=== PATIENT | male | born 1950 | race Caucasian/White ===

== ENCOUNTER 2021-08-23 11:22 | Emergency (ER) | payer OTHER, SELFPAY ==
[2021-08-23 12:03] VITALS: BP 141/57; PULSE 73; RESP 18; TEMP 36.7; O2SAT 98; BMI 25.6
--- NOTE | 2021-08-23 12:28 | W.ED.EYEPROB ---
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 It has not improved since last night. He says when he looks at a box of cereal this morning he can see the outline in the cereal box but he cannot see the center of it. Denies any pain headache has had some eye drainage that left eye over the last few weeks, denies any blood pressure problems or history of migraines. chief complaint: vision change Onset (ago): hour(s) (Started yesterday evening while about 130 miles from home) Onset description: sudden Duration: constant Location: left eye Eye Symptoms: decreased vision Place: work Mechanism: none Severity: moderate Context: other (Did have new glass scription 1 month ago) Associated symptoms: Reports other (Clear drainage from left eye); Denies fever(s), headache(s), nausea or vomiting Review of Systems Const: Denies: fever(s), chills or body aches Eyes: Reports: change in vision and eye discharge (Clear); Denies: blurry vision ENMT: Denies: throat pain or nasal congestion Card: Denies: chest pain or dyspnea on exertion Resp: Denies: dyspnea, productive cough or non-productive cough GI: Denies: abdominal pain, nausea or vomiting : Denies: difficulty urinating Musc: Denies: extremity pain Skin/Breast: Denies: rash Neuro: Denies: headache(s) Psych: Denies: anxiety or depression Frederic/Lymph: Denies: easy bruising Physical Exam Const: COMMON NORMALS: no acute distress GENERAL APPEARANCE: cooperative HENMT: COMMON NORMALS: normocephalic and Normal external nose present HEAD & SCALP: normocephalic FACE & SINUS: normal facial exam NOSE: Normal external nose present Eye: COMMON NORMALS: EOMs intact bilaterally and conjunctivae normal ALIGNMENT: Yes alignment normal EYELID: eyelid abnormality left lower eyelid (Mild redness) CONJUNCTIVA: Yes conjunctivae normal PUPIL: Yes Pupil accommodation reflex normal DIRECT OPHTHALMOSCOPY: No photophobia and Yes other (Increased redness left eye, cannot ascertain a retinal detachment) Course Vital Signs: Vital signs: Vital Signs Temperature 98.1 F 08/23/21 12:03 Pulse Rate 73 08/23/21 12:03 Respiratory Rate 18 08/23/21 12:03 Blood Pressure 141/57 08/23/21 12:03 Pulse Oximetry 98 08/23/21 12:03 MDM - Eye Problem MDM Narrative: Medical decision making narrative: I spoke with Dr. Sosa at [facility] and he said going to send the patient over right now for evaluation and further care. I have concern for possible retinal detachment Discharge Plan Discharge Patient Disposition: Home Clinical Impression: Retina disorder, left Condition: Stable Discharge Orders: Discharge ED (Routine); Ordered 08/23/21 Ordered By: Peter Rosario Referrals: Rafiq Petit [Primary Care Provider] - Discharge Diet: Usual diet Activity Restrictions/Additional Instructions: You are being discharged from ER to [facility] and going to see Dr. Sosa and they said they will work you and evaluate your visual disturbance in the left eye. Please go directly to [facility] office. Coding Level of Care Code ED Production Welder for Cher Epstein
== END 2021-08-23 12:30 | disposition home or self-care (01) ==
PROVIDERS: Emergency Provider Nurse Practitioner Family; PCP Family Medicine
DX: H35.9 Unspecified retinal disorder (principal)
CPT/HCPCS: 99282

== ENCOUNTER 2023-07-09 08:02 | Outpatient (CLI) | payer OTHER, SELFPAY ==
--- NOTE | 2023-07-09 | USCV_ITS ---
Edmund Jessica Age: 72 Gender: M : 1950 Exam Date: 07/09/2023 08:39 Ordering Phys: Rosalina Ann MD Technologist: Juanis Wick Exam Location: [facility] [place] Indication: PT STATES HAD STENT IN 2000. DOT NOW REQUIRES ECHO FOR EXAM BP: 130 / 70 HR: 58 Rhythm: Sinus Technical Quality: Adequate MEASUREMENTS (Male / Female) Normal Values 2D ECHO LV Diastolic Diameter PLAX 4.4 cm 4.2 - 5.9 / 3.9 - 5.3 cm LV Systolic Diameter PLAX 3.5 cm LV Chamber Size 2.8 cm IVS Diastolic Thickness 1.2 cm 0.6 - 1.0 / 0.6 - 0.9 cm IVS Systolic Thickness 1.6 cm LVPW Diastolic Thickness 1.4 cm 0.6 - 1.0 / 0.6 - 0.9 cm LVPW Systolic Thickness 1.8 cm RV Chamber Size 2.5 cm LVOT Diameter 2.0 cm LV Ejection Fraction 2D Teich 21.3 % LV Ejection Fraction MOD 2C 47.3 % LV Ejection Fraction 2C AL 45.6 % LA Diameter 3.6 cm LA Width 3.0 cm LA Height 2.7 cm RA Width 3.0 cm RA Height 3.7 cm Aorta at Sinotubular Diameter 3.7 cm IVC Diameter 1.8 cm M-MODE Aortic Annulus Diameter 3.4 cm LA Ao Ratio MM 1.1 MV E Point Septal Separation 0.2 cm DOPPLER AV Peak Velocity 114.0 cm/s LVOT Peak Velocity 101.0 cm/s AV Area Cont Eq vti 2.8 cm squared AV Area Cont Eq pk 2.8 cm squared MV Area PHT 1.5 cm squared Mitral E to A Ratio 0.7 MV E' Velocity 33.5 cm/s Mitral E to MV E' Ratio 7.3 Mitral E to LV E' Lateral Ratio 6.4 Mitral E to LV E' Septal Ratio 8.5 TR Peak Velocity 227.2 cm/s TR Peak Gradient 20.6 mmHg TR Mean Velocity 119.8 cm/s TR Mean Gradient 7.4 mmHg TR Velocity Time Integral 41.4 cm TV Peak E Velocity 45.0 cm/s Right Atrial Pressure 3.0 mmHg Pulmonary Artery Systolic Pressu 23.6 mmHg RV Acceleration Time 0.1 s RV Ejection Time 0.4 s RV AcT/ET 0.3 FINDINGS Left Ventricle Normal left ventricular size, systolic function and wall thickness, with no regional wall motion abnormalities. Left ventricular ejection fraction is estimated at 65 %. Grade 1 diastolic dysfunction. Right Ventricle Normal right ventricular size and systolic function. Right Atrium Normal right atrial size. Left Atrium Normal left atrial size. Mitral Valve Structurally normal mitral valve. No mitral valve stenosis. Trace mitral valve regurgitation. Aortic Valve Thickened aortic valve. No aortic valve stenosis. No aortic valve regurgitation. Tricuspid Valve Structurally normal tricuspid valve. Trace tricuspid valve regurgitation. Pulmonic Valve Structurally normal pulmonic valve. Trace pulmonary valve regurgitation. Pericardium No pericardial effusion. Aorta Normal size aortic root and proximal ascending aorta. IVC Normal IVC dimension with >50% respiratory change of the inferior vena cava. CONCLUSIONS Normal left ventricle functions. No LVH. Estimated LVEF normal 65%. Normal chamber sizes. No significant valvular abnormality noted. Normal right heart and pulmonary pressure. David Jones MD (Electronically Signed) Final Date: 09 July 2023 14:07 S
--- NOTE | 2023-07-09 | US_ITS ---
WS: [id number] RIGHT UPPER QUADRANT ULTRASOUND HISTORY: ELEVATED ALT'S COMPARISON: None available. Liver: 17.0 cm in length. Mildly enlarged coarse liver. The entire liver is not well seen due to atte nuation from hepatic steatosis. No mass seen. No bile duct dilatation. Portal Vein: Normal hepatopetal flow with monophasic waveform. Gallbladder: Normally distended gallbladder with no stones or wall thickening. CBD: 0.5 cm Pancreas: Portions of the head and tail are obscured. The body is negative. Right kidney: 12.1 cm in length. Normal size kidney. No solid mass or hydronephrosis. Simple cyst sup erior pole measures 3.0 x 1.8 x 2.0 cm. Aorta and IVC: Unremarkable abdominal aorta and IVC. No ascites. IMPRESSION: 1. Normal gallbladder. 2. Mild hepatomegaly with hepatic steatosis. The entire liver is not well visualized. 3. Simple cyst superior pole RIGHT kidney.
== END 2023-07-09 08:03 | disposition home or self-care (01) ==
LOC: RAD 08:02
PROVIDERS: PCP Family Medicine; Visit Provider Family Medicine
DX: R07.9 Chest pain, unspecified (principal); R74.01 Elevation of levels of liver transaminase levels; K76.0 Fatty (change of) liver, not elsewhere classified; R16.0 Hepatomegaly, not elsewhere classified; N28.1 Cyst of kidney, acquired; Z95.5 Presence of coronary angioplasty implant and graft
CPT/HCPCS: 76705; 93306

== ENCOUNTER 2024-01-15 13:23 | Inpatient (IN) | payer OTHER, SELFPAY ==
[2024-01-15] VITALS (11 sets, daily range): BP systolic 151–216; BP diastolic 64–86; PULSE 53–75; RESP 13–20; TEMP 36.3; O2SAT 91–95; BMI 27.2; BMI 27.5
--- NOTE | 2024-01-15 13:27 | ECG_ITS ---
[facility] Test Date: 2024-01-15 Pat Name: Edmund Jessica Department: Room: Gender: Male Consumer Insights Specialist: : 1950 Requested By: Lori Torres Order Number: [id number] Orville MD: Sukhi Horton M.D. Measurements Intervals [place] Rate: 63 P: 59 ME: 166 QRS: 50 QRSD: 119 T: 27 QT: 343 QTc: 353 Interpretive Statements SINUS RHYTHM POSSIBLE LEFT ATRIAL ENLARGEMENT [-0.1mV P-WAVE IN V1/V2] MODERATE INTRAVENTRICULAR CONDUCTION DELAY [110+ ms QRS DURATION] NONSPECIFIC T-WAVE ABNORMALITY No previous ECG available for comparison Electronically Signed On 01-15-2024 18:14:18 CDT by Sukhi Horton M.D. [id number] f
--- NOTE | 2024-01-15 14:08 | XR_ITS ---
WS: [id number] XR chest 1V portable [id number] REASON FOR EXAM: cp FINDINGS: Mild tortuosity of the thoracic aorta. Heart size at the upper limits of normal. Calcified granulomas disease in both hemithoraces. No acute pulmonary parenchymal or pleural abnormality in the right hemithorax. In the left hemithorax there are reticular interstitial left lower lung opacities and blunting of the left costophrenic angle. The chronicity of these changes are not known since the previous examinatio n was 12/20/2015. The findings were not present at that time. Mild degenerative spondylosis in the mid and lower thoracic spine. XR/XR chest 1V portable [id number] IMPRESSION: Left lung and pleural abnormality of unknown chronicity. This could represent a n acute/subacute pneumonitis and left pleural effusion.
--- NOTE | 2024-01-15 14:20 | ED_ITS ---
HPI - SOB/Dyspnea 2 General: Chief Complaint: Shortness of Breath/Dyspnea Stated Complaint: Shortness of breath Time Seen by Provider: 01/15/24 14:07 Source: patient Mode of arrival: ambulatory Limitations: no limitations History of Present Illness: HPI Narrative: 73-year-old male states he has been havi ng shortness of breath of the last 2 to 3 days. He states its much worse with exertion patient here is requiring 2 L of oxygen at this time. He states he had some bandlike pressure around his chest denies any pain currently denies cough denies fever no history of COPD or CHF Associated symptoms: Deny abdominal pain, chest pain, fever(s), nausea or vomiting Review of Systems 2 Const: Denies: fever(s), chills, body aches or change in appetite ENMT: Denies: throat pain or dental pain Card: Denies: chest pain Resp: Reports: dyspnea GI: Denies: abdominal pain, nausea, vomiting or diarrhea Musc: Denies: neck pain or back pain Skin/Breast: Denies: rash Neuro: Denies: headache(s) Physical Exam 2 Const: COMMON NORMALS: patient oriented x3 HENMT: COMMON NORMALS: normocephalic and atraumatic HEAD & SCALP: n ormocephalic and atraumatic Eye: COMMON NORMALS: Equal, round and reactive pupils present and EOMs intact bilaterally PUPIL: Yes Equal, round and reactive pupils present Neck/C-Spine: COMMON NORMALS: full ROM and supple Chest: COMMONS NORMALS: normal inspection of the chest and normal palpation of entire chest wall Resp: COMMON NORMALS: normal respiratory effort, No retractions, No use of accessory muscles and clear to auscultation bilaterally AUSCULTATION: clear to auscultation bilaterally Cardio: COMMON NORMALS: regular rate, regular rhythm and No murmurs present (Cardio) RATE: regular rate RHYTHM: regular rhythm GI: COMMON NORMALS: Normal to inspection, nondistended, normoactive bowel sounds present, Soft to palpation, non-tender and no masses PALPATION: Yes Soft to palpation Extremity: COMMON NORMALS: normal to inspection and full ROM Neuro: COMMON NORMALS: patient oriented x3, moves all extremities and no focal motor deficits Psych: COMMON NORMALS: mental status grossly normal, Normal thought process present and cooperative THOUGHT PROCESS: Normal thought process present Skin: COMMON NORMALS: no rashes or lesions noted and no wounds GENERAL SKIN EXAM: no rashes or lesions noted Course 2 Vital Signs: Vital signs: Vital Signs Temperature 97.4 F L 01/15/24 13:34 Pulse Rate 56 L 01/15/24 17:50 Respiratory Rate 20 H 01/15/24 17:50 Blood Pressure 192/84 01/15/24 17:50 Pulse Oximetry 94 01/15/24 17:50 Oxygen Delivery Me thod Nasal Cannula 01/15/24 17:50 Oxygen Flow Rate 2 01/15/24 15:15 MDM - SOB/Dyspnea Medical Decision Making Patient presents here with dyspnea likely new onset CHF he does have an elevated BNP is CT shows pulmonary edema and cardiomegaly he is requiring oxygen here as well he has no PE no chest pain troponins are normal did give him Lasix here spoke to the hospitalist will admit. Medical Records I reviewed the patient's medical records. Lab Data I reviewed the patient's lab results. 01/15/24 14:15 01/15/24 14:15 Labs/Radiology: Radiology Impressions Chest X-Ray 01/15/24 14:08 IMPRESSION: Left lung and pleural abnormality of unknown chronicity. This could represent an acute/subacute pneumonitis and left pleural effusion. Chest CTA 01/15/24 15:47 IMPRESSION: 1. No pulmonary embolism. 2. Dilated pulmonary artery which can be seen with pulmonary arterial hypertension, measuring 34 millimeters. 3. Diffuse pulmonary edema. 4. Cardiomegaly. 5. There is severe triple-vessel atherosclerotic calcifications of the coronary arteries. 6. Diffuse hepatic steatosis. 7. Partially visualized bilateral moderate hydronephrosis. COMMENTS: Consistent with the [place] [employer]'s Incidental Findings Committee white paper (J Am Jam Radiol 2018): Any incidental renal lesion less than 1 cm or classified as too small to characterize, or any incidental cystic renal lesion characterized as simple-appearing, is likely benign. No follow-up imaging is recommended for these lesions per consensus recommendations based on imaging criteria. Laboratory Results WBC 9.30 10^3/uL (3.29-11.43) 01/15/24 14:15 RBC 4.09 10^6/uL (3.85-5.65) 01/15/24 14:15 Hgb 12.60 g/dL (11.27-16.99) 01/15/24 14:15 Hct 36.7 % (37-53) L 01/15/24 14:15 MCV 89.7 fl (82-101) 01/15/24 14:15 MCH 30.8 pg (27-33) 01/15/24 14:15 MCHC 34.3 g/dL (30-55) 01/15/24 14:15 RDW 12.6 % (12.1-15.1) 01/15/24 14:15 Plt Count 240 10^3/cmm (157-399) 01/15/24 14:15 MPV 11.2 fL (7.4-10.4) H 01/15/24 14:15 Neut % (Auto) 67.6 % 01/15/24 14:15 Lymph % (Auto) 14.9 % 01/15/24 14:15 Mclean % (Auto) 14.6 % 01/15/24 14:15 Eos % (Auto) 2.3 % 01/15/24 14:15 Baso % (Auto) 0.4 % 01/15/24 14:15 Neut # (Auto) 6.28 10^3/uL (1.8-7.7) 01/15/24 14:15 Lymph # (Auto) 1.4 10^3/uL (0.8-4.8) 01/15/24 14:15 Mclean # (Auto) 1.4 10^3/uL (0.2-0.9) H 01/15/24 14:15 Eos # (Auto) 0.2 10^3/uL (0.0-0.8) 01/15/24 14:15 Baso # (Auto) 0.0 10^3/uL (0.0-0.1) 01/15/24 14:15 Nucleated RBC % (auto) 0 % 01/15/24 14:15 Nucleated RBCs # 0.0 /100WBC 01/15/24 14:15 D-Dimer 0.84 ug/mLFEU (0-0.59) H 01/15/24 14:15 Sodium 139 mmol/L (136-145) 01/15/24 14:15 Potassium 3.4 mmol/L (3.5-5.1) L 01/15/24 14:15 Chloride 100 mmol/L (98-107) 01/15/24 14:15 Carbon Dioxide 24 mmol/L (22-29) 01/15/24 14:15 Anion Gap 18.4 (5-19) 01/15/24 14:15 BUN 18 mg/dL (8-23) 01/15/24 14:15 Creatinine 1.2 mg/dL (0.7-1.2) 01/15/24 14:15 GFR Calculation Not Reportable 01/15/24 14:15 Glucose 108 mg/dL (65-115) 01/15/24 14:15 Calculated Osmolality 290 mOsm/kg (285-295) 01/15/24 14:15 Calcium 8.4 mg/dL (8.5-10.5) L 01/15/24 14:15 Total Bilirubin 0.6 mg/dL (0.15-1.2) 01/15/24 14:15 AST 18 U/L (0-40) 01/15/24 14:15 ALT 37 U/L (0-41) 01/15/24 14:15 Alkaline Phosphatase 27 U/L (40-130) L 01/15/24 14:15 Troponin T Baseline 20 ng/L (0-15) H 01/15/24 14:15 Troponin T 120 Minute 19.57 ng/L (0-15) H 01/15/24 16:15 Delta Troponin T -0.43 ABS# (0-10) L 01/15/24 16:15 NT-Pro-B Natriuret Pep 1209 pg/mL (0-450) H 01/15/24 14:15 Total Protein 6.7 g/dL (6.6-8.7) 01/15/24 14:15 Albumin 4.0 g/dL (3.5-5.2) 01/15/24 14:15 Globulin 2.7 g/dL (1.3-4.6) 01/15/24 14:15 All radiology interpretation(s) finalized by discharge EKG Data EKG 1: I personally reviewed and interpreted this EKG as follows: EKG Interpretation Date: 01/15/24 EKG interpretation time: 13:27 Interpretation: nsr hr [address] elevation qrs 119 qtc 351 Discharge Plan Discharge Patient Disposition: Admitted As Inpatient Clinical Impression: Congestive heart failure, Hypoxia Condition: Stable Prescriptions: No Action nitroglycerin 2.5 mg Capsule, Extended Release 5 mg PO BID Rx Instructions: allow nitrate-free interval of approx. 10-12 hrs per 24-hour period Aspir-81 81 mg Tablet,Delayed Release (Dr/Ec) 40.5 mg PO BID simvastatin 40 mg Tablet 40 mg PO QPM tamsulosin 0.4 mg Capsule 0.4 mg PO QPM lisinopril 10 mg Tablet 10 mg PO QAM hydrochlorothiazide 25 mg Tablet 12.5 mg PO DAILY metoprolol tartrate 25 mg Tablet 25 mg PO QAM Centrum Silver Men [id number] mcg Tablet 1 tab PO QAM Referrals: Rafiq Petit [Primary Care Provider] - Coding Level of Care Code ED Telecommunication Tower Technician for Cher Epstein
[2024-01-15 14:33] LABS: Basophils % 0.4 %; Eosinophils # 0.2 10^3/uL (0.0-0.8); Eosinophils % 2.3 %; Hematocrit 36.7 % (37-53); Lymphocytes # 1.4 10^3/uL (0.8-4.8); Lymphocytes % 14.9 %; Mean Corpuscular HGB Conc 34.3 g/dL (30-55); Mean Corpuscular Hemoglobin 30.8 pg (27-33); Mean Corpuscular Volume 89.7 fl (82-101); Mean Platelet Volume 11.2 fL (7.4-10.4); Monocytes # 1.4 10^3/uL (0.2-0.9); Monocytes % 14.6 %; Neutrophils # 6.28 10^3/uL (1.8-7.7); Neutrophils % 67.6 %; Nucleated Red Blood Cells % 0 %; Platelet Count 240 10^3/cmm (157-399); Red Blood Count 4.09 10^6/uL (3.85-5.65); Red Cell Distribution Width 12.6 % (12.1-15.1)
--- NOTE | 2024-01-15 14:40 | PC.PHAR ---
PT IS [facility] BUT DOES HAVE HIS MED LIST ON HIS PHONE
[2024-01-15 15:08] LABS: Troponin(5th) Baseline 20 ng/L (0-15)
[2024-01-15 15:17] LABS: Alanine Aminotransferase 37 U/L (0-41); Alkaline Phosphatase 27 U/L (40-130); Anion Gap 18.4 (5-19); Aspartate Amino Transferase 18 U/L (0-40); Blood Urea Nitrogen 18 mg/dL (8-23); Calcium 8.4 mg/dL (8.5-10.5); Carbon Dioxide 24 mmol/L (22-29); Chloride 100 mmol/L (98-107); Creatinine Clr Calc Pharmacy 58.8861; Globulin 2.7 g/dL (1.3-4.6); Glucose 108 mg/dL (65-115); NT Pro B Type Natriuretic Pept 1209 pg/mL (0-450); Osmolality Calculated 290 mOsm/kg (285-295); Potassium 3.4 mmol/L (3.5-5.1); Sodium 139 mmol/L (136-145); Total Bilirubin 0.6 mg/dL (0.15-1.2); Total Protein 6.7 g/dL (6.6-8.7)
[2024-01-15 15:18] LABS: D Dimer 0.84 ug/mLFEU (0-0.59)
--- NOTE | 2024-01-15 15:47 | CTR_ITS ---
PROCEDURE INFORMATION: Exam: CTA Chest With Contrast Exam date and time: 01/15/2024 4:24 PM Age: 73 years old Clinical indication: Dyspnea; Additional info: SOB TECHNIQUE: Imaging protocol: Computed tomographic angiography of the chest with contrast. Exam focused on the arteries. 3D rendering (Not supervised by radiologist): MIP and/or 3D reconstructed images were created by the technologist. Radiation optimization: All CT scans at this facility use at least one of these dose optimization techniques: automated exposure control; mA and/or kV adjustment per patient size (includes targeted exams where dose is matched to clinical indication); or iterative reconstruction. Contrast material: OMNI 350; Contrast volume: 100 ml; Contrast route: INTRAVENOUS (IV); COMPARISON: CR XR chest 1V portable [id number] 01/15/2024 2:23 PM RADIATION DOSE METRICS: Total DLP (mGy-cm): 525 FINDINGS: Pulmonary arteries: Adequate visualization of the pulmonary arteries to the subsegmental level. No pulmonary embolism. Dilated pulmonary artery which can be seen with pulmonary arterial hypertension, measuring 34 millimeters. Aorta: Ascending aorta is normal in caliber. Lungs: Central airways are patent, there is mild distal bronchial wall thickening. Diffuse predominantly lower lung base interlobular septal thickening consistent with pulmonary edema. Pleural spaces: Utjct-ud-bvgwtvoi bilateral pleural effusions with compressive atelectasis. Heart: Cardiomegaly. Coronary arteries: There is severe triple-vessel atherosclerotic calcifications of the coronary arteries. Lymph nodes: Unremarkable. No enlarged lymph nodes. Liver: Diffuse hepatic steatosis. Kidneys and ureters: Partially visualized bilateral hydronephrosis. Retroperitoneal space: Partially visualized retroperitoneal 2.8 x 3 centimeters round cystic opacity posterior to the right kidney, likely an exophytic cyst. Bones/joints: Unremarkable. No acute fracture. Soft tissues: Unremarkable. CT/CT angio chest PE protcl [id number] IMPRESSION: 1. No pulmonary embolism. 2. Dilated pulmonary artery which can be seen with pulmonary arterial hypertension, measuring 34 millimeters. 3. Diffuse pulmonary edema. 4. Cardiomegaly. 5. There is severe triple-vessel atherosclerotic calcifications of the coronary arteries. 6. Diffuse hepatic steatosis. 7. Partially visualized bilateral moderate hydronephrosis. COMMENTS: Consistent with the [place] [employer]'s Incidental Findings Committee white paper (J Am Jam Radiol 2018): Any incidental renal lesion less than 1 cm or classified as too small to characterize, or any incidental cystic renal lesion characterized as simple-appearing, is likely benign. No follow-up imaging is recommended for these lesions per consensus recommendations based on imaging criteria.
--- NOTE | 2024-01-15 16:08 | ECG_ITS ---
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 Measurements Intervals [place] Rate: 54 P: 61 WI: 161 QRS: 53 QRSD: 114 T: 7 QT: 383 QTc: 364 Interpretive Statements SINUS BRADYCARDIA MODERATE INTRAVENTRICULAR CONDUCTION DELAY [110+ ms QRS DURATION] NONSPECIFIC T-WAVE ABNORMALITY Compared to ECG 01/15/2024 13:27:34 Sinus rhythm no longer present T-wave abnormality still present Electronically Signed On 01-15-2024 18:16:47 CDT by Sukhi Horton M.D. [email or web address] hospitalAllied Digital Servicesun[facility].[email or web address]/store/[id number]
[2024-01-15] MEDS: iohexol 350 mg/mL 500 mL Btl (per mL) IV (16:35)
[2024-01-15 16:54] LABS: Troponin 5 2HR 19.57 ng/L (0-15)
[2024-01-15 16:56] LABS: Troponin 5 2HR Delta -0.43 ABS# (0-10)
[2024-01-15] MEDS: FUROsemide 10 mg/mL SDV 10mL 60 MG IVP (17:48)
[2024-01-15] MEDS: acetaminophen 500 mg Tablet 1000 MG PO (18:22)
--- NOTE | 2024-01-15 18:51 | P.HP_ITS ---
Providers/Chief Complaint 2 Primary Care Provider: Rafiq Petit Chief Complaint: Shortness of breath History of Present Illness Edmund Jessica is a 73 year old male with past medical history of hypertension, hyperlipidemia, CAD s/p PCI x 1 in 2000, BPH presented with complaint of shortness of breath since 2 days. He reports he was getting his trash out on Saturday morning, the trash can is 100 yards from his main door but while coming back he started feeling severe shortness of breath associated with substernal chest discomfort but no nausea vomiting or dizziness. He was able to walk back to the main door, sat for few minutes on the stairs and went inside and lie down for few minutes. He started feeling well after this episode was able to carry on his routine chores. He even visited [facility] yesterday and had no difficulty walking or shortness of breath for 2 hours. He had a second episode of shortness of breath last night, where again he was unable to walk and described as' unable to catch my breath'. He also endorses abdominal distention that he noticed for the last couple of days. He denies any history of similar complaints in the past. Denies any history of fever, cold, cough, chest pain, urinary or bowel complaints. In ER he was found to be hypoxic with oxygen saturation in 80s and was started on 2 L nasal cannula. Currently oxygen saturation is 94% on 2 L nasal cannula. D-dimer was 0.8, but CT chest 1. No pulmonary embolism. 2. Dilated pulmonary artery which can be seen with pulmonary arterial hypertension, measuring 34 millimeters. 3. Diffuse pulmonary edema. 4. Cardiomegaly. 5. There is severe triple-vessel atherosclerotic calcifications of the coronary arteries. 6. Diffuse hepatic steatosis. 7. Partially visualized bilateral moderate hydronephrosis. Chest x-ray showed Mild tortuosity of the thoracic aorta. Heart size at the upper limits of normal. Calcified granulomas disease in both hemithoraces. No acute pulmonary parenchymal or pleural abnormality in the right hemithorax. In the left hemithorax there are reticular interstitial left lower lung opacities and blunting of the left costophrenic angle. The chronicity of these changes are not known since the previous examination was 12/20/2015. The findings were not present at that time. Mild degenerative spondylosis in the mid and lower thoracic spine. ECHO 07/04 Normal left ventricle functions. No LVH. Estimated LVEF normal 65%. Normal chamber sizes. No significant valvular abnormality noted. Normal right heart and pulmonary pressure. Review of Systems 2 General: Reports: 10 or more systems reviewed and unremarkable except in HPI and below Medications/Allergies Home Medications Medication Instructions Recorded Confirmed Last Taken Type aspirin 81 mg tablet,delayed 40.5 mg PO BID 01/15/24 01/15/24 01/15/24 History release hydrochlorothiazide 25 mg tablet 12.5 mg PO DAILY 01/15/24 01/15/24 01/15/24 History lisinopril 10 mg tablet 10 mg PO QAM 01/15/24 01/15/24 01/15/24 History metoprolol tartrate 25 mg tablet 25 mg PO QAM 01/15/24 01/15/24 01/15/24 History pxsdjvzm-qt-[id number] 300 mcg-K 60 1 tab PO QAM 01/15/24 01/15/24 01/15/24 History mcg-lycop 600 mcg-lutein 300 mcg tablet (Centrum Silver Men) nitroglycerin 2.5 mg 5 mg PO BID 01/15/24 01/15/24 01/15/24 History capsule,extended release simvastatin 40 mg tablet 40 mg PO QPM 01/15/24 01/15/24 01/14/24 History tamsulosin 0.4 mg capsule 0.4 mg PO QPM 01/15/24 01/15/24 01/14/24 History Allergies Allergy/AdvReac Type Severity Reaction Status Date / Time Penicillins Allergy ALGY-Swell Verified 01/15/24 13:37 Lip/Tongue/Throat Vitals/I&O/Wt Last Vital Signs Temp 97.4 F L 01/15/24 13:34 Pulse 72 01/15/24 18:35 Resp 15 01/15/24 18:35 BP 216/86 01/15/24 18:35 Pulse Ox 95 01/15/24 18:35 O2 Del Method Nasal Cannula 01/15/24 17:50 O2 Flow Rate 2 01/15/24 15:15 Weight last 48 hrs Weight 86.183 kg Physical Exam 2 Narrative: He is alert awake oriented x 3 Chest clear to auscultation bilaterally Cardiovascular normal heart sounds no murmurs Abdomen soft distended nontender normal bowel sounds Extremity bilateral trace edema present. Data 01/16/24 04:58 01/16/24 04:58 A&P Assessment and plan (1) Congestive heart failure: (2) Hypoxia: Plan 73 year old male with past medical history of hypertension, hyperlipidemia, CAD s/p PCI x 1 in 2000, BPH presented with complaint of shortness of breath since 2 days. He reports he was getting his trash out on Saturday morning, the trash can is 100 yards from his main door but while coming back he started feeling severe shortness of breath associated with substernal chest discomfort but no nausea vomiting or dizziness and found to have a BNP of 1209 and chest x-ray consistent with fluid overload CHF exacerbation- Admit to CSU with continuous telemetry monitoring IV Lasix 40 mg twice daily Fluid restriction to 1.5L Strict I's and O's Daily weight Daily BMP Check 2D echo. Cardiac diet DVT prophylaxis with Lovenox GI prophylaxis with IV Pepcid He is full code for now Resume home medications, simvastatin, lisinopril and metoprolol. Attestations 2 Medical Necessity Statement*: He needs continued hospitalization crossing 2 midnights for management of congestive heart failure with IV diuresis and evaluation for bilateral hydronephrosis Time Spent in Patient Care: 45 minutes Coding Level of Care Code Acute Code for g Fwd Diagnoses Congestive heart failure I50.9 Hypoxia R09.02 Time Spent (min) 45
--- NOTE | 2024-01-15 19:02 | USR_ITS ---
PROCEDURE INFORMATION: Exam: US Abdomen Complete Exam date and time: 01/15/2024 7:55 PM Age: 73 years old Clinical indication: Other: Presenting in er with shortness of breath x 2-3 days. ; Additional info: Hydronephrosis TECHNIQUE: Imaging protocol: Real-time ultrasound of the abdomen with image documentation. Complete exam. COMPARISON: US abdomen limited [id number] 07/09/2023 9:00 AM FINDINGS: Liver: Increased diffuse echogenicity be seen with mild diffuse hepatic steatosis Gallbladder: Normal. No gallstones. There is no gallbladder wall thickening. Biliary ducts: Normal. No stones. No dilation. Pancreas: Visualized pancreas is unremarkable. Right kidney: Small right renal upper pole cyst measuring 2.7 x 2.4 centimeters. Right renal lower pole 1 x 1.3 centimeters anechoic cysts. No hydronephrosis or obstructing stones. Left kidney: Left renal upper pole 3 x 3.2 centimeters anechoic cyst. Spleen: Normal. No splenomegaly. Aorta: Normal. No aneurysm. Inferior vena cava: Normal. US/US abdomen complete* [id number] IMPRESSION: 1. No acute findings. 2. Mild diffuse hepatic steatosis.
--- NOTE | 2024-01-15 20:08 | ECG_ITS ---
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 Measurements Intervals [place] Rate: 61 P: 58 TN: 166 QRS: 55 QRSD: 113 T: -4 QT: 337 QTc: 340 Interpretive Statements SINUS RHYTHM POSSIBLE LEFT ATRIAL ENLARGEMENT [-0.1mV P-WAVE IN V1/V2] MODERATE INTRAVENTRICULAR CONDUCTION DELAY [110+ ms QRS DURATION] NONSPECIFIC ST & T-WAVE ABNORMALITY Compared to ECG 01/15/2024 16:15:08 Sinus bradycardia no longer present T-wave abnormality still present Electronically Signed On 01-16-2024 12:24:16 CDT by Sukhi Horton M.D. [id number]
[2024-01-15] MEDS: enoxaparin 40 mg/0.4 mL Syringe SUBCUT (20:44)
--- NOTE | 2024-01-15 21:28 | PC.NURSE ---
Medsurg Patient diagnosis and oxygen requirements relayed to Dr. Robb. Order received to obtain placement on Medsurg.
[2024-01-15] MEDS: famotidine 20 mg/2 mL INJ IVP (22:23)
[2024-01-16] VITALS (10 sets, daily range): BP systolic 134–183; BP diastolic 64–74; PULSE 54–74; RESP 16–20; TEMP 36.4–36.9; O2SAT 91–94; BMI 28.3
--- NOTE | 2024-01-16 00:16 | PC.NURSE ---
ER nurse reported 3000 out [facility] ped[facility]za [facility], output was not charted.
[2024-01-16] MEDS: lisinopril 10 mg Tablet PO (05:23)
[2024-01-16] MEDS: metoprolol tartrate 25 mg Tablet PO (05:23)
[2024-01-16 05:49] LABS: Basophils % 0.4 %; Eosinophils # 0.1 10^3/uL (0.0-0.8); Eosinophils % 1.3 %; Hematocrit 38.9 % (37-53); Lymphocytes # 1.7 10^3/uL (0.8-4.8); Lymphocytes % 15.6 %; Mean Corpuscular HGB Conc 33.9 g/dL (30-55); Mean Corpuscular Hemoglobin 30.7 pg (27-33); Mean Corpuscular Volume 90.5 fl (82-101); Mean Platelet Volume 11.7 fL (7.4-10.4); Monocytes # 1.7 10^3/uL (0.2-0.9); Monocytes % 15.8 %; Neutrophils # 7.33 10^3/uL (1.8-7.7); Neutrophils % 66.5 %; Nucleated Red Blood Cells % 0 %; Platelet Count 256 10^3/cmm (157-399); Red Cell Distribution Width 12.7 % (12.1-15.1); White Blood Count 11.01 10^3/uL (3.29-11.43)
[2024-01-16 06:09] LABS: Alanine Aminotransferase 34 U/L (0-41); Albumin Level 3.8 g/dL (3.5-5.2); Alkaline Phosphatase 27 U/L (40-130); Aspartate Amino Transferase 20 U/L (0-40); Blood Urea Nitrogen 17 mg/dL (8-23); Calcium 9.6 mg/dL (8.5-10.5); Carbon Dioxide 28 mmol/L (22-29); Chloride 97 mmol/L (98-107); Creatinine Clr Calc Pharmacy 59.9234; Globulin 3.4 g/dL (1.3-4.6); Glucose 89 mg/dL (65-115); Osmolality Calculated 293 mOsm/kg (285-295); Phosphorus 5.6 mg/dL (2.5-4.5); Sodium 141 mmol/L (136-145); Total Bilirubin 0.5 mg/dL (0.15-1.2); Total Protein 7.2 g/dL (6.6-8.7)
[2024-01-16 06:20] LABS: Chol HDL Ratio 3.71 mg/dL (1.0-5.00); Cholesterol 126 mg/dL (0-200); HDL Cholesterol 34 mg/dL (60-100); LDL Cholesterol Calculated 61 mg/dL (50-129); LDL HDL Ratio 1.79 RATIO (0.00-3.22); NT Pro B Type Natriuretic Pept 918 pg/mL (0-450); Triglycerides 154 mg/dL (0-150)
[2024-01-16 06:23] LABS: Anion Gap 19.1 (5-19); Potassium 3.1 mmol/L (3.5-5.1)
[2024-01-16] MEDS: potassium chloride ER 20 mEq Tablet 40 MEQ PO ×2 (07:26→12:28)
[2024-01-16] MEDS: FUROsemide 10 mg/mL SDV 4mL 40 MG IVP ×2 (07:35→20:17)
[2024-01-16] MEDS: aspirin 81 mg EC Tablet PO (08:21)
[2024-01-16] MEDS: famotidine 20 mg/2 mL INJ IVP ×2 (08:21→20:17)
--- NOTE | 2024-01-16 13:53 | P.PN_ITS ---
Subjective 2 Subjective: No acute overnight events noted. Had a possible traumatic Suazo insertion, euro bag draining red-colored urine this morning which has been clearing up and now seems orange-colored. Patient has a history of BPH. He denies any urinary complaints Medications: Reviewed: Yes Vitals/I&O/Wt Last Vital Signs Temp 97.5 F L 01/16/24 11:46 Pulse 74 01/16/24 11:46 Resp 18 01/16/24 11:46 BP 153/74 01/16/24 11:46 Pulse Ox 93 01/16/24 11:46 O2 Del Method Nasal Cannula 01/16/24 11:46 O2 Flow Rate 3 01/16/24 09:44 01/15/24 01/16/24 01/16/24 22:59 06:59 14:59 Intake Total 240 / 240 540 / 780 1160 / 1160 Output Total 1800 / 1800 1900 / 3700 4800 / 4800 Balance -1560 / -1560 -1360 / -2920 -3640 / -3640 Weight last 48 hrs Weight 89.63 kg Weight 89.584 kg Weight 89.528 kg Weight 87.09 kg Weight 86.183 kg Physical Exam 2 Narrative: He is alert awake oriented x 3 Chest clear to auscultation bilaterally Cardiovascular normal heart sounds no murmurs Abdomen soft distended nontender normal bowel sounds Extremity bilateral trace edema present. Urinary Catheter Management: Suazo: Cath Placed During This Visit: yes Reason for Continuing Indwelling Catheter: Acute Urinary Retention or Obstruction Urinary Catheter Date of Insertion: 01/15/24 Data 01/16/24 04:58 01/16/24 04:58 A&P Assessment and plan (1) Congestive heart failure: (2) Hypoxia: Plan 73 year old male with past medical history of hypertension, hyperlipidemia, CAD s/p PCI x 1 in 2000, BPH presented with complaint of shortness of breath since 2 days. He reports he was getting his trash out on Saturday morning, the trash can is 100 yards from his main door but while coming back he started feeling severe shortness of breath associated with substernal chest discomfort but no nausea vomiting or dizziness and found to have a BNP of 1209 and chest x-ray consistent with fluid overload CHF exacerbation- Admit to CSU with continuous telemetry monitoring IV Lasix 40 mg twice daily Fluid restriction to 1.5L Strict I's and O's, 194/8499, he is -6560 Follow-up 2D echo Cardiac diet DVT prophylaxis with Lovenox GI prophylaxis with IV Pepcid He is full code for now Resume home medications, simvastatin, lisinopril and metoprolol. Attestations 2 Medical Necessity Statement*: He needs continued hospitalization crossing 2 midnights for management of congestive heart failure with IV diuresis and evaluation for bilateral hydronephrosis Time Spent in Patient Care: 15 minutes Coding Level of Care Code Acute Code for [facility] Fwd Diagnoses Congestive heart failure I50.9 Hypoxia R09.02 Time Spent (min) 15
--- NOTE | 2024-01-16 13:57 | USCV_ITS ---
Edmund Jessica Age: 73 Gender: M : 1950 Exam Date: 01/16/2024 16:08 Ordering Phys: Nithya Castanon MD Technologist: CT Exam Location: [facility] [place] Indication: chf BP: 140 / 85 HR: 61 Rhythm: Sinus Technical Quality: Suboptimal MEASUREMENTS (Male / Female) Normal Values 2D ECHO LVOT Diameter 2.1 cm LV Ejection Fraction MOD 2C 66.9 % LV Ejection Fraction 2C AL 68.6 % LA Diameter 3.7 cm RA Systolic Volume 4C AL 39.6 ml RA Systolic Volume 4C MOD 37.5 ml LA Sys Volume AL 54.7 cm cubed LA Sys Volume Index AL 26.3 cm cubed/m squared Aorta at Sinotubular Diameter 2.5 cm IVC Diameter 2.0 cm M-MODE LA Ao Ratio MM 1.4 AV Cusp Separation MM 2.3 cm DOPPLER AV Peak Velocity 128.0 cm/s LVOT Peak Velocity 116.0 cm/s AV Area Cont Eq vti 3.3 cm squared AV Area Cont Eq pk 3.3 cm squared MV Peak Velocity 72.0 cm/s MV Area PHT 1.9 cm squared Mitral E to A Ratio 0.8 TR Peak Velocity 155.0 cm/s TR Peak Gradient 9.6 mmHg TV Peak E Velocity 50.0 cm/s Right Atrial Pressure 3.0 mmHg Pulmonary Artery Systolic Pressu 12.6 mmHg FINDINGS Left Ventricle Normal left ventricular size, systolic function and wall thickness, with no regional wall motion abnormalities. Grade I/IV diastolic dysfunction (abnormal relaxation filling pattern), normal to mildly elevated filling pressures. Left ventricular ejection fraction is estimated at 60 %. Right Ventricle Normal right ventricular size and systolic function. Normal right ventricular systolic pressure. Right Atrium The right atrium is normal in size. Left Atrium The left atrium is normal in size. Mitral Valve Structurally normal mitral valve. Mild mitral valve regurgitation. Aortic Valve Structurally normal aortic valve without significant sclerosis or stenosis. There is no aortic regurgitation. Tricuspid Valve Structurally normal tricuspid valve without significant stenosis or regurgitation. Pulmonary artery systolic pressure is normal. Pulmonic Valve Pulmonic valve not well visualized. Pericardium Normal pericardium without effusion. Aorta Normal ascending aorta dimension. IVC The inferior vena cava appears normal. CONCLUSIONS Normal left ventricular size, systolic function and wall thickness, with no regional wall motion abnormalities. Grade I/IV diastolic dysfunction (abnormal relaxation filling pattern), normal to mildly elevated filling pressures. Left ventricular ejection fraction is estimated at 60 %. Structurally normal mitral valve. Mild mitral valve regurgitation. Previous study was done at the end of June last year. No change. Dr. Kilo Thompson MD (Electronically Signed) Final Date: 17 January 2024 12:41 S
[2024-01-16] MEDS: atorvastatin 40 mg Tablet 20 MG PO (17:10)
[2024-01-16] MEDS: tamsulosin 0.4 mg Capsule 0.400000000000000022 MG PO (17:11)
[2024-01-16 18:08] LABS: Potassium 3.4 mmol/L (3.5-5.1)
[2024-01-16] MEDS: enoxaparin 40 mg/0.4 mL Syringe SUBCUT (20:17)
[2024-01-17] VITALS (9 sets, daily range): BP systolic 98–137; BP diastolic 61–74; PULSE 60–74; RESP 15–20; TEMP 36.5–37.1; O2SAT 87–95
[2024-01-17] MEDS: metoprolol tartrate 25 mg Tablet PO (06:23)
[2024-01-17] MEDS: lisinopril 10 mg Tablet PO (06:24)
[2024-01-17 06:39] LABS: Basophils # 0.1 10^3/uL (0.0-0.1); Basophils % 0.4 %; Eosinophils # 0.2 10^3/uL (0.0-0.8); Eosinophils % 1.7 %; Hematocrit 42.6 % (37-53); Lymphocytes # 1.8 10^3/uL (0.8-4.8); Lymphocytes % 14.7 %; Mean Corpuscular HGB Conc 33.1 g/dL (30-55); Mean Corpuscular Hemoglobin 30.7 pg (27-33); Mean Corpuscular Volume 92.6 fl (82-101); Monocytes % 16.6 %; Neutrophils # 7.95 10^3/uL (1.8-7.7); Neutrophils % 66.2 %; Nucleated Red Blood Cells % 0 %; Platelet Count 255 10^3/cmm (157-399); Red Cell Distribution Width 12.9 % (12.1-15.1)
[2024-01-17 06:58] LABS: Alanine Aminotransferase 28 U/L (0-41); Alkaline Phosphatase 27 U/L (40-130); Aspartate Amino Transferase 19 U/L (0-40); Blood Urea Nitrogen 22 mg/dL (8-23); Calcium 9.5 mg/dL (8.5-10.5); Carbon Dioxide 31 mmol/L (22-29); Chloride 94 mmol/L (98-107); Creatinine Clr Calc Pharmacy 50.5176; Globulin 3.9 g/dL (1.3-4.6); Glucose 122 mg/dL (65-115); Osmolality Calculated 299 mOsm/kg (285-295); Phosphorus 4.7 mg/dL (2.5-4.5); Sodium 142 mmol/L (136-145); Total Bilirubin 0.5 mg/dL (0.15-1.2); Total Protein 7.9 g/dL (6.6-8.7)
[2024-01-17 07:08] LABS: Anion Gap 19.9 (5-19)
[2024-01-17 07:09] LABS: Potassium 2.9 mmol/L (3.5-5.1)
[2024-01-17] MEDS: potassium chloride ER 20 mEq Tablet 40 MEQ PO ×2 (09:21→12:05)
[2024-01-17] MEDS: aspirin 81 mg EC Tablet PO (09:22)
[2024-01-17] MEDS: NITROGLYCERIN 2.5 MG 5 EACH PO ×2 (09:23→17:04)
[2024-01-17] MEDS: famotidine 20 mg/2 mL INJ IVP ×2 (09:25→20:30)
--- NOTE | 2024-01-17 10:28 | PC.SOCIAL ---
IMM Update pg 2 of IMM updated and reviewed w/ patient. Copy provided and copy dated, initialed and placed in chart.
[2024-01-17 13:02] LABS: Potassium 3.5 mmol/L (3.5-5.1)
[2024-01-17] MEDS: FUROsemide 10 mg/mL SDV 4mL 40 MG IVP (13:41)
--- NOTE | 2024-01-17 14:02 | PM.PN ---
Subjective Subjective: No acute overnight events noted. Hematuria resolved. He is having less shortness of breath and able to speak in full sentences Medications: Reviewed: Yes Vitals/I&O/Wt Last Vital Signs Temp 98.1 F 01/17/24 11:23 Pulse 68 01/17/24 11:23 Resp 15 01/17/24 11:23 BP 137/74 01/17/24 11:23 Pulse Ox 92 01/17/24 11:23 O2 Del Method Nasal Cannula 01/17/24 11:23 O2 Flow Rate 1 01/17/24 11:23 01/16/24 01/17/24 01/17/24 22:59 06:59 14:59 Intake Total 0 / 1160 476 / 476 Output Total 300 / 5100 2150 / 7250 Balance -300 / -3940 -2150 / -6090 476 / 476 Weight last 48 hrs Weight 86.353 kg Weight 89.63 kg Weight 89.584 kg Weight 89.528 kg Weight 87.09 kg Physical Exam Narrative: He is alert awake oriented x 3 Chest clear to auscultation bilaterally Cardiovascular normal heart sounds no murmurs Abdomen soft distended nontender normal bowel sounds Extremity bilateral trace edema present. Urinary Catheter Management: Suazo: Cath Placed During This Visit: yes Reason for Continuing Indwelling Catheter: Accurate Measurement of Urinary Output in Critically Ill Patients Urinary Catheter Date of Insertion: 01/15/24 Data 01/17/24 05:41 01/17/24 12:36 A&P Assessment and plan (1) Congestive heart failure: (2) Hypoxia: Plan 73 year old male with past medical history of hypertension, hyperlipidemia, CAD s/p PCI x 1 in 2000, BPH presented with complaint of shortness of breath since 2 days. He reports he was getting his trash out on Saturday morning, the trash can is 100 yards from his main door but while coming back he started feeling severe shortness of breath associated with substernal chest discomfort but no nausea vomiting or dizziness and found to have a BNP of 1209 and chest x-ray consistent with fluid overload CHF exacerbation- IV Lasix 40 mg changed to once daily Fluid restriction to Strict I's and O's, he is -2 L Follow-up 2D echo- Normal left ventricular size, systolic function and wall thickness, with no regional wall motion abnormalities. Grade I/IV diastolic dysfunction (abnormal relaxation filling pattern), normal to mildly elevated filling pressures. Left ventricular ejection fraction is estimated at 60 %. Structurally normal mitral valve. Mild mitral valve regurgitation. Previous study was done at the end of June last year. No change. Acute renal failure with creatinine of 1.4 likely secondary to overdiuresis. Will change Lasix to once daily. Elevated WBC count of 12 likely reactive, will hold off on antibiotics for now. Cardiac diet DVT prophylaxis with Lovenox GI prophylaxis with IV Pepcid He is full code for now Resume home medications, simvastatin, lisinopril and metoprolol. Discharge planning for tomorrow morning with home oxygen at 2 L nasal cannula. Attestations Medical Necessity Statement*: He needs continued hospitalization crossing 2 midnights for management of congestive heart failure with IV diuresis Time Spent in Patient Care: 15 minutes Coding Level of Care Code Acute Code for [facility] Fwd Diagnoses Congestive heart failure I50.9 Hypoxia R09.02 Time Spent (min) 15
[2024-01-17] MEDS: tamsulosin 0.4 mg Capsule 0.400000000000000022 MG PO (17:03)
[2024-01-17] MEDS: atorvastatin 40 mg Tablet 20 MG PO (17:03)
[2024-01-17] MEDS: enoxaparin 40 mg/0.4 mL Syringe SUBCUT (20:30)
[2024-01-17 20:57] LABS: Bilirubin Urine Neg (Negative); Blood Urine 3+ (Negative); Glucose Urine UA Trace (Normal); Ketones Urine 1+ (Negative); Leukocyte Esterase Urine Trace (Negative); Nitrate Urine Positive (Negative); Protein Urine 3+ (Negative); Specific Gravity, Urine 1.015 (1.005-1.030); Urine Appearance Cloudy (CLEAR); Urine Color Red (Yellow); Urobilinogen Urine Neg (Negative); pH Urine 6 (5-7)
[2024-01-17 20:58] LABS: Add Urine Culture? Yes; Bacteria Urine 1+ /hpf; Mucus Urine TRACE /hpf; RBC Urine TOO NUMEROUS TO CNT /hpf (0-2); Squamous Epithelial Cell Urine 0-4 /hpf (0-5)
[2024-01-17] MEDS: ciprofloxacin 400 MG/200 ML PREMIX 200 MG IV (22:39)
[2024-01-18] VITALS (12 sets, daily range): BP systolic 113–152; BP diastolic 52–80; PULSE 58–94; RESP 16–18; TEMP 36.3–36.9; O2SAT 91–96
[2024-01-18] MEDS: lisinopril 10 mg Tablet PO (05:21)
[2024-01-18] MEDS: metoprolol tartrate 25 mg Tablet PO (05:21)
[2024-01-18 05:54] LABS: Basophils # 0.1 10^3/uL (0.0-0.1); Basophils % 0.4 %; Eosinophils # 0.7 10^3/uL (0.0-0.8); Eosinophils % 4.7 %; Hematocrit 41.4 % (37-53); Lymphocytes # 1.7 10^3/uL (0.8-4.8); Mean Corpuscular HGB Conc 33.8 g/dL (30-55); Mean Corpuscular Hemoglobin 31.3 pg (27-33); Mean Corpuscular Volume 92.6 fl (82-101); Mean Platelet Volume 11.1 fL (7.4-10.4); Monocytes # 2.1 10^3/uL (0.2-0.9); Neutrophils # 9.53 10^3/uL (1.8-7.7); Neutrophils % 67.5 %; Nucleated Red Blood Cells % 0 %; Platelet Count 249 10^3/cmm (157-399); Red Blood Count 4.47 10^6/uL (3.85-5.65); Red Cell Distribution Width 12.9 % (12.1-15.1)
[2024-01-18 06:08] LABS: Alanine Aminotransferase 41 U/L (0-41); Albumin Level 3.8 g/dL (3.5-5.2); Alkaline Phosphatase 29 U/L (40-130); Anion Gap 15.2 (5-19); Aspartate Amino Transferase 23 U/L (0-40); Blood Urea Nitrogen 19 mg/dL (8-23); Calcium 8.3 mg/dL (8.5-10.5); Carbon Dioxide 27 mmol/L (22-29); Chloride 99 mmol/L (98-107); Creatinine Clr Calc Pharmacy 64.9688; Globulin 3.4 g/dL (1.3-4.6); Glucose 122 mg/dL (65-115); Osmolality Calculated 290 mOsm/kg (285-295); Phosphorus 3.6 mg/dL (2.5-4.5); Potassium 3.2 mmol/L (3.5-5.1); Sodium 138 mmol/L (136-145); Total Bilirubin 0.5 mg/dL (0.15-1.2); Total Protein 7.2 g/dL (6.6-8.7)
[2024-01-18] MEDS: aspirin 81 mg EC Tablet PO (08:51)
[2024-01-18] MEDS: famotidine 20 mg/2 mL INJ IVP ×2 (08:52→20:16)
[2024-01-18] MEDS: NITROGLYCERIN 2.5 MG 5 EACH PO ×2 (08:53→17:45)
--- NOTE | 2024-01-18 10:44 | USR_ITS ---
PROCEDURE INFORMATION: Exam: US Retroperitoneal; Complete; Kidneys and Bladder Exam date and time: 01/18/2024 12:10 PM Age: 73 years old Clinical indication: Other: Hematuria TECHNIQUE: Imaging protocol: Real-time ultrasound of the retroperitoneum with image documentation. Complete exam focused on the kidneys and bladder. COMPARISON: US abdomen complete* [id number] 01/15/2024 7:55 PM FINDINGS: Right kidney: Right kidney measures 10.5 cm in length. A couple cysts noted in the right kidney. The larger cyst measuring 3.5 cm is simple in appearance the smaller cyst measuring 1.4 cm is minimally complex with thin internal septations. No evident stones. No hydronephrosis. Left kidney: Left kidney measures 10.1 cm in length. Simple cyst noted in the left kidney measuring 3 cm. Suspected stone within the lower pole the left kidney measuring 4 mm in size. No hydronephrosis. Urinary bladder: Debris-filled bladder. Suazo catheter noted within the bladder. Prostate: Enlarged prostate. US/US renal BI* [id number] IMPRESSION: 1. Suspected 4 mm stone in the lower pole of the left kidney. 2. Bilateral renal cysts, simple to minimally complex with some thin internal septations. No further follow-up is needed. 3. Debris-filled bladder with Suazo catheter in place.
[2024-01-18] MEDS: ciprofloxacin 400 MG/200 ML PREMIX 200 MG IV ×2 (10:45→21:18)
--- NOTE | 2024-01-18 10:45 | PM.PN ---
Subjective Subjective: No overnight events noted. He denies any pain, or worsening shortness of breath. He is comfortably lying in bed and able to speak in full sentences Medications: Reviewed: Yes Vitals/I&O/Wt Last Vital Signs Temp 98.4 F 01/18/24 07:39 Pulse 70 01/18/24 09:02 Resp 16 01/18/24 09:02 BP 128/71 01/18/24 07:39 Pulse Ox 95 01/18/24 09:02 O2 Del Method Nasal Cannula 01/18/24 09:02 O2 Flow Rate 2 01/18/24 09:02 01/17/24 01/18/24 01/18/24 22:59 06:59 14:59 Intake Total 240 / 716 440 / 1156 240 / 240 Output Total 2300 / 2300 40 / 2340 800 / 800 Balance -2060 / -1584 400 / -1184 -560 / -560 Weight last 48 hrs Weight 88.405 kg Weight 88.405 kg Weight 86.353 kg Physical Exam Narrative: He is alert awake oriented x 3 Chest clear to auscultation bilaterally Cardiovascular normal heart sounds no murmurs Abdomen soft distended nontender normal bowel sounds Extremity bilateral trace edema present. -Suazo in place draining red-colored urine. Had a traumatic Suazo placement 2 days ago, but hematuria less likely seems to be secondary to trauma more likely secondary to UTI Urinary Catheter Management: Suazo: Cath Placed During This Visit: yes Reason for Continuing Indwelling Catheter: Acute Urinary Retention or Obstruction Urinary Catheter Date of Insertion: 01/15/24 Data 01/18/24 05:40 01/18/24 05:40 A&P Assessment and plan (1) Congestive heart failure: (2) Hypoxia: (3) UTI (urinary tract infection): (4) Hematuria: Plan 73 year old male with past medical history of hypertension, hyperlipidemia, CAD s/p PCI x 1 in 2000, BPH presented with complaint of shortness of breath since 2 days. He reports he was getting his trash out on Saturday morning, the trash can is 100 yards from his main door but while coming back he started feeling severe shortness of breath associated with substernal chest discomfort but no nausea vomiting or dizziness and found to have a BNP of 1209 and chest x-ray consistent with fluid overload CHF exacerbation- IV Lasix 40 mg changed to once daily Fluid restriction to 1.5L Strict I's and O's, he is -1.9L Follow-up 2D echo- Normal left ventricular size, systolic function and wall thickness, with no regional wall motion abnormalities. Grade I/IV diastolic dysfunction (abnormal relaxation filling pattern), normal to mildly elevated filling pressures. Left ventricular ejection fraction is estimated at 60 %. Structurally normal mitral valve. Mild mitral valve regurgitation. Previous study was done at the end of June last year. No change. Acute renal failure with creatinine of 1.4 likely secondary to overdiuresis. Will change Lasix to once daily. Creatinine improved this morning UTI- Worsening leukocytosis of 14 likely secondary to UTI, continue IV ciprofloxacin for now Persistent hematuria, hemoglobin stable at 14. Discontinue Lovenox and hold aspirin. Continuous bladder irrigation every 4 hours Will check ultrasound kidneys with bladder to rule out any obstruction Cardiac diet DVT prophylaxis with SCD GI prophylaxis with IV Pepcid He is full code for now Resume home medications, simvastatin, lisinopril and metoprolol. Attestations Medical Necessity Statement*: He needs continued hospitalization for management of UTI with IV antibiotics and hematuria. Time Spent in Patient Care: 15 minutes Coding Level of Care Code Acute Code for [facility] Fwd Diagnoses Congestive heart failure I50.9 Hypoxia R09.02 UTI (urinary tract infection) N39.0 Hematuria R31.9 Time Spent (min) 15
[2024-01-18] MEDS: FUROsemide 10 mg/mL SDV 4mL 40 MG IVP (13:32)
[2024-01-18] MEDS: lactated ringers 1,000 ML 75 ML IV (15:42)
[2024-01-18] MEDS: atorvastatin 40 mg Tablet 20 MG PO (17:44)
[2024-01-18] MEDS: tamsulosin 0.4 mg Capsule 0.400000000000000022 MG PO (17:44)
[2024-01-18] MEDS: TAMSULOSIN 0.4 MG PO (18:31)
[2024-01-19] VITALS (10 sets, daily range): BP systolic 108–151; BP diastolic 60–73; PULSE 62–83; RESP 16–18; TEMP 36.4–36.8; O2SAT 95–97
[2024-01-19 05:22] LABS: Basophils # 0.1 10^3/uL (0.0-0.1); Basophils % 0.4 %; Eosinophils # 0.3 10^3/uL (0.0-0.8); Eosinophils % 1.9 %; Hematocrit 39.2 % (37-53); Lymphocytes # 1.9 10^3/uL (0.8-4.8); Lymphocytes % 11.7 %; Mean Corpuscular HGB Conc 33.9 g/dL (30-55); Mean Corpuscular Hemoglobin 31.1 pg (27-33); Mean Corpuscular Volume 91.8 fl (82-101); Mean Platelet Volume 11.3 fL (7.4-10.4); Monocytes # 2.4 10^3/uL (0.2-0.9); Monocytes % 14.6 %; Neutrophils # 11.69 10^3/uL (1.8-7.7); Neutrophils % 70.8 %; Nucleated Red Blood Cells % 0 %; Platelet Count 264 10^3/cmm (157-399); Red Blood Count 4.27 10^6/uL (3.85-5.65); Red Cell Distribution Width 12.9 % (12.1-15.1); White Blood Count 16.52 10^3/uL (3.29-11.43)
[2024-01-19] MEDS: metoprolol tartrate 25 mg Tablet PO (05:27)
[2024-01-19] MEDS: lisinopril 10 mg Tablet PO (05:27)
[2024-01-19] MEDS: lactated ringers 1,000 ML 75 ML IV ×2 (05:27→18:39)
[2024-01-19 05:33] LABS: Blood Urea Nitrogen 20 mg/dL (8-23); Calcium 7.9 mg/dL (8.5-10.5); Carbon Dioxide 29 mmol/L (22-29); Chloride 93 mmol/L (98-107); Creatinine Clr Calc Pharmacy 59.5547; Glucose 129 mg/dL (65-115); Osmolality Calculated 286 mOsm/kg (285-295); Sodium 136 mmol/L (136-145)
[2024-01-19 05:34] LABS: Anion Gap 17.3 (5-19); Potassium 3.3 mmol/L (3.5-5.1)
--- NOTE | 2024-01-19 07:25 | XRR_ITS ---
PROCEDURE INFORMATION: Exam: XR Chest Exam date and time: 01/19/2024 8:28 AM Age: 73 years old Clinical indication: Other: Leucocytosis TECHNIQUE: Imaging protocol: Radiologic exam of the chest. Views: 1 view. Total images: 2 COMPARISON: CT angio chest PE protcl [id number] 01/15/2024 4:24 PM FINDINGS: Lungs: Unremarkable. No consolidation. Pleural spaces: Unremarkable. No pleural effusion. No pneumothorax. Heart/Mediastinum: Unremarkable. No cardiomegaly. Bones/joints: Unremarkable. XR/XR chest 1V portable [id number] IMPRESSION: No acute findings.
[2024-01-19] MEDS: NITROGLYCERIN 2.5 MG 5 EACH PO ×2 (08:01→17:22)
[2024-01-19] MEDS: potassium chloride ER 20 mEq Tablet 40 MEQ PO ×2 (08:01→12:31)
[2024-01-19] MEDS: famotidine 20 mg/2 mL INJ IVP ×2 (08:01→20:19)
[2024-01-19] MEDS: ciprofloxacin 400 MG/200 ML PREMIX 200 MG IV (10:39)
--- NOTE | 2024-01-19 11:46 | P.PN_ITS ---
Subjective 2 Subjective: No acute overnight events noted, he denies any new complaints, breathing comfortably and denies any pain. Medications: Reviewed: Yes Vitals/I&O/Wt Last Vital Signs Temp 98.1 F 01/19/24 07:16 Pulse 68 01/19/24 08:19 Resp 16 01/19/24 08:19 BP 114/63 01/19/24 07:16 Pulse Ox 97 01/19/24 08:19 O2 Del Method Nasal Cannula 01/19/24 08:19 O2 Flow Rate 2 01/19/24 08:19 01/18/24 01/19/24 01/19/24 22:59 06:59 14:59 Intake Total 560 / 1120 1240 / 2360 440 / 440 Output Total 700 / 2950 600 / 3550 500 / 500 Balance -140 / -1830 640 / -1190 -60 / -60 Weight last 48 hrs Weight 88.314 kg Weight 88.405 kg Weight 88.405 kg Physical Exam 2 Narrative: He is alert awake oriented x 3 Chest clear to auscultation bilaterally Cardiovascular normal heart sounds no murmurs Abdomen soft distended nontender normal bowel sounds Extremity bilateral trace edema present. -Suazo in place draining red-colored urine. Had a traumatic Suazo placement 2 days ago, but hematuria less likely seems to be secondary to trauma more likely secondary to UTI. Hematuria resolving Urinary Catheter Management: Suazo: Cath Placed During This Visit: yes Reason for Continuing Indwelling Catheter: Other Urinary Catheter Date of Insertion: 01/15/24 Data 01/19/24 04:16 01/19/24 04:16 A&P Assessment and plan (1) Congestive heart failure: (2) Hypoxia: (3) UTI (urinary tract infection): (4) Hematuria: Plan 73 year old male with past medical history of hypertension, hyperlipidemia, CAD s/p PCI x 1 in 2000, BPH presented with complaint of shortness of breath since 2 days. He reports he was getting his trash out on Saturday morning, the trash can is 100 yards from his main door but while coming back he started feeling severe shortness of breath associated with substernal chest discomfort but no nausea vomiting or dizziness and found to have a BNP of 1209 and chest x-ray consistent with fluid overload CHF exacerbation- IV Lasix 40 mg changed to once daily Fluid restriction to 1.5L Strict I's and O's, he is -1.9L Follow-up 2D echo- Normal left ventricular size, systolic function and wall thickness, with no regional wall motion abnormalities. Grade I/IV diastolic dysfunction (abnormal relaxation filling pattern), normal to mildly elevated filling pressures. Left ventricular ejection fraction is estimated at 60 %. Structurally normal mitral valve. Mild mitral valve regurgitation. Previous study was done at the end of June last year. No change. Acute renal failure with creatinine of 1.4 likely secondary to overdiuresis. Will change Lasix to once daily. Creatinine improved this morning UTI- Worsening leukocytosis of 14 likely secondary to UTI, continue IV ciprofloxacin for now Persistent hematuria, hemoglobin stable at 14. Discontinue Lovenox and hold aspirin. IV fluids Ringer lactate at 75 cc/h Will check ultrasound kidneys with bladder to rule out any obstruction Cardiac diet DVT prophylaxis with SCD GI prophylaxis with IV Pepcid He is full code for now Resume home medications, simvastatin, lisinopril and metoprolol. Plan for 04/17- Give trial of void, then if urine clears up, no hematuria, can discontinue urinary catheter. Discontinue IV Lasix in view of normal chest x-ray, CHF resolved. Start p.o. Lasix 20 mg daily. Will continue IV fluids and continue antibiotics to IV ceftriaxone 1 g daily given worsening leukocytosis USG kidney mid bladder showed 4 mm renal stone in lower pole of left kidney, bilateral renal cysts, and debris-filled bladder with Suazo in place. Attestations 2 Medical Necessity Statement*: He needs continued hospitalization for IV antibiotics and fluids for UTI with hematuria Coding Level of Care Code Acute Code for [facility] Diagnoses Congestive heart failure I50.9 Hypoxia R09.02 UTI (urinary tract infection) N39.0 Hematuria R31.9
[2024-01-19] MEDS: cefTRIAXone 1,000 MG in sodium chloride 0.9% (plus) 100 ML 200 MG IV (12:32)
--- NOTE | 2024-01-19 12:45 | PC.NURSE ---
bladder training At 1040 clamped pedroza cath, at 1240 unclamped and got 200 yellow urine, reclamped until will do 2hr train again.
[2024-01-19] MEDS: TAMSULOSIN 0.4 MG PO (17:20)
[2024-01-19] MEDS: atorvastatin 40 mg Tablet 20 MG PO (17:22)
[2024-01-20] VITALS (9 sets, daily range): BP systolic 107–165; BP diastolic 61–74; PULSE 64–76; RESP 16–19; TEMP 36.4–37; O2SAT 95–97
[2024-01-20 05:04] LABS: Basophils # 0.1 10^3/uL (0.0-0.1); Basophils % 0.4 %; Eosinophils # 0.3 10^3/uL (0.0-0.8); Eosinophils % 2.5 %; Hematocrit 36.2 % (37-53); Lymphocytes # 1.5 10^3/uL (0.8-4.8); Lymphocytes % 11.7 %; Mean Corpuscular HGB Conc 33.1 g/dL (30-55); Mean Corpuscular Hemoglobin 30.2 pg (27-33); Mean Platelet Volume 11.3 fL (7.4-10.4); Monocytes # 1.9 10^3/uL (0.2-0.9); Monocytes % 14.8 %; Neutrophils % 69.9 %; Nucleated Red Blood Cells % 0 %; Platelet Count 247 10^3/cmm (157-399); Red Blood Count 3.98 10^6/uL (3.85-5.65); Red Cell Distribution Width 12.8 % (12.1-15.1)
[2024-01-20] MEDS: lisinopril 10 mg Tablet PO (05:10)
[2024-01-20] MEDS: metoprolol tartrate 25 mg Tablet PO (05:10)
[2024-01-20 05:28] LABS: Anion Gap 12.8 (5-19); Blood Urea Nitrogen 16 mg/dL (8-23); Calcium 7.8 mg/dL (8.5-10.5); Carbon Dioxide 27 mmol/L (22-29); Chloride 102 mmol/L (98-107); Creatinine Clr Calc Pharmacy 80.0503; Glucose 131 mg/dL (65-115); Osmolality Calculated 289 mOsm/kg (285-295); Potassium 3.8 mmol/L (3.5-5.1); Sodium 138 mmol/L (136-145)
--- NOTE | 2024-01-20 05:52 | PC.NURSE ---
Pt was bladder scanned per orders w/estimated 571ml of urine in bladder. Straight cath performed via sterile technique w/475ml of dark yellow urine returned. Small blood clot, sediment, and mucous threads were present. Pt tolerated fair.
[2024-01-20] MEDS: lactated ringers 1,000 ML 75 ML IV ×2 (06:44→20:37)
[2024-01-20] MEDS: famotidine 20 mg/2 mL INJ IVP ×2 (09:11→20:37)
[2024-01-20] MEDS: FUROsemide 20 mg Tablet PO (09:11)
[2024-01-20] MEDS: NITROGLYCERIN 2.5 MG 5 EACH PO ×2 (09:14→18:14)
--- NOTE | 2024-01-20 11:21 | PM.PN ---
Subjective Subjective: No acute overnight events noted. He reports he is unable to urinate post catheter removal, last straight catheterization was this morning at 6 AM. Will do intermittent straight cath for now, nurse informed to do bladder scan at 12 noon before straight catheterization. Denies any complaint of pain or fever. Vitals/I&O/Wt Last Vital Signs Temp 98.2 F 01/20/24 07:12 Pulse 75 01/20/24 08:46 Resp 16 01/20/24 08:46 BP 107/61 01/20/24 07:12 Pulse Ox 95 01/20/24 08:46 O2 Del Method Nasal Cannula 01/20/24 08:46 O2 Flow Rate 2 01/20/24 08:46 01/19/24 01/20/24 01/20/24 22:59 06:59 14:59 Intake Total 1590 / 2490 1266.25 / 3756.25 360 / 360 Output Total 1175 / 2125 Balance 1590 / 1540 91.25 / 1631.25 360 / 360 Weight last 48 hrs Weight 90.01 kg Weight 88.314 kg Physical Exam Narrative: He is alert awake oriented x 3 Chest clear to auscultation bilaterally Cardiovascular normal heart sounds no murmurs Abdomen soft distended nontender normal bowel sounds Extremity bilateral trace edema present. -hematuria resolved, discontinued Suazo catheter. Urinary Catheter Management: Suazo: Cath Placed During This Visit: yes, but has since been removed by the nurse Reason for Continuing Indwelling Catheter: Decision to DC Catheter Urinary Catheter Date of Insertion: 01/15/24 Date Urinary Catheter Removed: 01/19/24 Time Urinary Catheter Discontinued: 14:55 Data 01/20/24 04:24 01/20/24 04:24 Micro: Microbiology 01/17/24 20:12 Urine Culture - Final Urine,Clean Catch A&P Assessment and plan (1) Congestive heart failure: (2) Hypoxia: (3) UTI (urinary tract infection): (4) Hematuria: Plan 73 year old male with past medical history of hypertension, hyperlipidemia, CAD s/p PCI x 1 in 2000, BPH presented with complaint of shortness of breath since 2 days. He reports he was getting his trash out on Saturday morning, the trash can is 100 yards from his main door but while coming back he started feeling severe shortness of breath associated with substernal chest discomfort but no nausea vomiting or dizziness and found to have a BNP of 1209 and chest x-ray consistent with fluid overload Acute urinary retention-likely secondary to Suazo catheterization. Will monitor with repeat bladder scan and straight catheterization as needed. CHF exacerbation- Resolved Started him on p.o. Lasix 20 mg daily Follow-up 2D echo- Normal left ventricular size, systolic function and wall thickness, with no regional wall motion abnormalities. Grade I/IV diastolic dysfunction (abnormal relaxation filling pattern), normal to mildly elevated filling pressures. Left ventricular ejection fraction is estimated at 60 %. Structurally normal mitral valve. Mild mitral valve regurgitation. Previous study was done at the end of June last year. No change. Acute renal failure with creatinine of 1.4 likely secondary to overdiuresis. Resolved, creatinine 0.9 today USG kidney mid bladder yesterday showed 4 mm renal stone in lower pole of left kidney, bilateral renal cysts, and debris-filled bladder with Suazo in place. UTI- leukocytosis improving to 13 from 16.5 likely secondary to UTI, antibiotics changed to IV ceftriaxone 1 g daily. Hematuria resolved Hold off Lovenox and aspirin for now IV fluids Ringer lactate at 75 cc/h Urine culture showed no growth at 36 hours Cardiac diet DVT prophylaxis with SCD GI prophylaxis with IV Pepcid He is full code for now Resume home medications, simvastatin, lisinopril and metoprolol. Attestations Medical Necessity Statement*: He needs continued hospitalization for IV antibiotics and fluids for UTI and acute urinary retention secondary to UTI and Suazo catheterization Time Spent in Patient Care: 15 minutes Coding Level of Care Code Acute Code for [facility] Diagnoses Congestive heart failure I50.9 Hypoxia R09.02 UTI (urinary tract infection) N39.0 Hematuria R31.9 Time Spent (min) 15
[2024-01-20] MEDS: cefTRIAXone 1,000 MG in sodium chloride 0.9% (plus) 100 ML 200 MG IV (13:06)
--- NOTE | 2024-01-20 13:58 | PC.SOCIAL ---
IMM updated IMM dated and given to patient, copy placed in chart.
[2024-01-20] MEDS: atorvastatin 40 mg Tablet 20 MG PO (18:13)
[2024-01-20] MEDS: TAMSULOSIN 0.4 MG PO (18:18)
[2024-01-21] VITALS (10 sets, daily range): BP systolic 134–162; BP diastolic 65–75; PULSE 64–74; RESP 15–18; TEMP 36.5–37.1; O2SAT 93–98
[2024-01-21] MEDS: lisinopril 10 mg Tablet PO (05:03)
[2024-01-21] MEDS: metoprolol tartrate 25 mg Tablet PO (05:03)
[2024-01-21 05:34] LABS: Basophils # 0.1 10^3/uL (0.0-0.1); Basophils % 0.5 %; Eosinophils # 0.7 10^3/uL (0.0-0.8); Eosinophils % 5.5 %; Hematocrit 35.8 % (37-53); Lymphocytes # 1.7 10^3/uL (0.8-4.8); Mean Corpuscular HGB Conc 33.5 g/dL (30-55); Mean Corpuscular Hemoglobin 30.7 pg (27-33); Mean Corpuscular Volume 91.6 fl (82-101); Mean Platelet Volume 11.1 fL (7.4-10.4); Monocytes # 1.8 10^3/uL (0.2-0.9); Monocytes % 14.6 %; Neutrophils % 64.7 %; Nucleated Red Blood Cells % 0 %; Platelet Count 285 10^3/cmm (157-399); Red Blood Count 3.91 10^6/uL (3.85-5.65); Red Cell Distribution Width 12.8 % (12.1-15.1); White Blood Count 12.05 10^3/uL (3.29-11.43)
[2024-01-21 05:57] LABS: Anion Gap 11.6 (5-19); Blood Urea Nitrogen 13 mg/dL (8-23); Calcium 8.1 mg/dL (8.5-10.5); Carbon Dioxide 28 mmol/L (22-29); Chloride 102 mmol/L (98-107); Creatinine Clr Calc Pharmacy 89.5957; Glucose 109 mg/dL (65-115); Osmolality Calculated 287 mOsm/kg (285-295); Potassium 3.6 mmol/L (3.5-5.1); Sodium 138 mmol/L (136-145)
[2024-01-21] MEDS: FUROsemide 20 mg Tablet PO (08:36)
[2024-01-21] MEDS: famotidine 20 mg/2 mL INJ IVP ×2 (08:37→19:58)
[2024-01-21] MEDS: NITROGLYCERIN 2.5 MG 5 EACH PO ×2 (08:38→17:01)
[2024-01-21] MEDS: lactated ringers 1,000 ML 75 ML IV ×2 (10:31→23:26)
[2024-01-21] MEDS: cefTRIAXone 1,000 MG in sodium chloride 0.9% (plus) 100 ML 200 MG IV (11:46)
--- NOTE | 2024-01-21 12:08 | PM.PN ---
Subjective Subjective: No acute overnight events noted. He continues to be stable and denies any new complaints. Had 700 mL on bladder scan yesterday post Suazo removal, hence another Suazo insertion done with 14-gauge. No hematuria noted in urine bag this morning Vitals/I&O/Wt Last Vital Signs Temp 97.7 F 01/21/24 11:09 Pulse 71 01/21/24 11:09 Resp 16 01/21/24 11:09 BP 147/75 01/21/24 11:09 Pulse Ox 98 01/21/24 11:09 O2 Del Method Room Air 01/21/24 11:09 O2 Flow Rate 2 01/21/24 09:20 01/20/24 01/21/24 01/21/24 22:59 06:59 14:59 Intake Total 1480 / 2420 360 / 2780 1100 / 1100 Output Total 2300 / 2300 1200 / 3500 500 / 500 Balance -820 / 120 -840 / -720 600 / 600 Weight last 48 hrs Weight 88.989 kg Weight 90.01 kg Physical Exam Narrative: He is alert awake oriented x 3 Chest clear to auscultation bilaterally Cardiovascular normal heart sounds no murmurs Abdomen soft distended nontender normal bowel sounds Extremity bilateral trace edema present. -hematuria resolved, discontinued Suazo catheter. Urinary Catheter Management: Suazo: Cath Placed During This Visit: yes, but has since been removed by the nurse Reason for Continuing Indwelling Catheter: Decision to DC Catheter Urinary Catheter Date of Insertion: 01/15/24 Date Urinary Catheter Removed: 01/19/24 Time Urinary Catheter Discontinued: 14:55 Data 01/21/24 04:20 01/21/24 04:20 A&P Assessment and plan (1) Congestive heart failure: (2) Hypoxia: (3) UTI (urinary tract infection): (4) Hematuria: Plan 73 year old male with past medical history of hypertension, hyperlipidemia, CAD s/p PCI x 1 in 2000, BPH presented with complaint of shortness of breath since 2 days. He reports he was getting his trash out on Saturday morning, the trash can is 100 yards from his main door but while coming back he started feeling severe shortness of breath associated with substernal chest discomfort but no nausea vomiting or dizziness and found to have a BNP of 1209 and chest x-ray consistent with fluid overload Acute urinary retention-likely secondary to Suazo catheterization. Bladder scan yesterday showed 700 mm hence Sauzo reinsertion done. Will need trial of void before discharge, will do intermittent during the day today. CHF exacerbation- Resolved Started him on p.o. Lasix 20 mg daily Follow-up 2D echo- Normal left ventricular size, systolic function and wall thickness, with no regional wall motion abnormalities. Grade I/IV diastolic dysfunction (abnormal relaxation filling pattern), normal to mildly elevated filling pressures. Left ventricular ejection fraction is estimated at 60 %. Structurally normal mitral valve. Mild mitral valve regurgitation. Previous study was done at the end of June last year. No change. Acute renal failure with creatinine of 1.4 likely secondary to overdiuresis. Resolved, creatinine 0.9 today USG kidney mid bladder yesterday showed 4 mm renal stone in lower pole of left kidney, bilateral renal cysts, and debris-filled bladder with Suazo in place. UTI- leukocytosis improving to 12 from 13, likely secondary to UTI, antibiotics changed to IV ceftriaxone 1 g daily. Hematuria resolved Hold off Lovenox and aspirin for now IV fluids Ringer lactate at 75 cc/h Urine culture showed no growth at 36 hours Cardiac diet DVT prophylaxis with SCD GI prophylaxis with IV Pepcid He is full code for now Resume home medications, simvastatin, lisinopril and metoprolol. Anticipatory discharge planning in 24 hours. Attestations Medical Necessity Statement*: He needs continued hospitalization for IV antibiotics and fluids for UTI and acute urinary retention secondary to UTI and Suazo catheterization Time Spent in Patient Care: 15 minutes Coding Level of Care Code Acute Code for [facility] Diagnoses Congestive heart failure I50.9 Hypoxia R09.02 UTI (urinary tract infection) N39.0 Hematuria R31.9 Time Spent (min) 15
[2024-01-21] MEDS: TAMSULOSIN 0.4 MG PO (17:01)
[2024-01-21] MEDS: atorvastatin 40 mg Tablet 20 MG PO (17:02)
[2024-01-22] VITALS (7 sets, daily range): BP systolic 123–178; BP diastolic 63–82; PULSE 58–76; RESP 15–19; TEMP 36.6–36.8; O2SAT 92–98; BMI 33.8
[2024-01-22] MEDS: metoprolol tartrate 25 mg Tablet PO (05:28)
[2024-01-22] MEDS: lisinopril 10 mg Tablet PO (05:29)
[2024-01-22 06:01] LABS: Basophils # 0.1 10^3/uL (0.0-0.1); Basophils % 0.7 %; Eosinophils # 0.6 10^3/uL (0.0-0.8); Eosinophils % 5.1 %; Lymphocytes % 16.5 %; Mean Corpuscular HGB Conc 33.8 g/dL (30-55); Mean Corpuscular Hemoglobin 30.9 pg (27-33); Mean Corpuscular Volume 91.6 fl (82-101); Mean Platelet Volume 10.2 fL (7.4-10.4); Monocytes # 1.5 10^3/uL (0.2-0.9); Monocytes % 12.6 %; Neutrophils # 7.76 10^3/uL (1.8-7.7); Neutrophils % 64.5 %; Nucleated Red Blood Cells % 0 %; Platelet Count 293 10^3/cmm (157-399); Red Blood Count 4.04 10^6/uL (3.85-5.65); Red Cell Distribution Width 12.7 % (12.1-15.1); White Blood Count 12.01 10^3/uL (3.29-11.43)
[2024-01-22] MEDS: famotidine 20 mg/2 mL INJ IVP (08:57)
[2024-01-22] MEDS: NITROGLYCERIN 2.5 MG 5 EACH PO (08:57)
[2024-01-22] MEDS: FUROsemide 20 mg Tablet PO (08:58)
--- NOTE | 2024-01-22 09:08 | PC.SOCIAL ---
IMM Update pg 2 of IMM updated and reviewed w/ patient. Copy provided and copy dated, initialed and placed in chart.
--- NOTE | 2024-01-22 11:43 | PM.DCS ---
Discharge Providers Date of Admission: 01/15/24 18:17 Date of Discharge: January 22, 2024 Attending Provider at Admission: Nithya Castanon MD Attending Provider at Discharge: Nithya Castanon MD Primary Care Provider: Rafiq Petit Diagnoses at Discharge Discharge Diagnosis (1) Congestive heart failure: Status: Acute (2) Hypoxia: Status: Acute (3) UTI (urinary tract infection): Status: Acute (4) Hematuria: Status: Acute Reason for Visit Reason for Visit: Shortness of breath Brief History: Edmund Jessica is a 73 year old male with past medical history of hypertension, hyperlipidemia, CAD s/p PCI x 1 in 2000, BPH presented with complaint of shortness of breath since 2 days. He reports he was getting his trash out on Saturday morning, the trash can is 100 yards from his main door but while coming back he started feeling severe shortness of breath associated with substernal chest discomfort but no nausea vomiting or dizziness. He was able to walk back to the main door, sat for few minutes on the stairs and went inside and lie down for few minutes. He started feeling well after this episode was able to carry on his routine chores. He even visited [facility] yesterday and had no difficulty walking or shortness of breath for 2 hours. He had a second episode of shortness of breath last night, where again he was unable to walk and described as' unable to catch my breath'. He also endorses abdominal distention that he noticed for the last couple of days. He denies any history of similar complaints in the past. Denies any history of fever, cold, cough, chest pain, urinary or bowel complaints. In ER he was found to be hypoxic with oxygen saturation in 80s and was started on 2 L nasal cannula. Currently oxygen saturation is 94% on 2 L nasal cannula. D-dimer was 0.8, but CT chest 1. No pulmonary embolism. 2. Dilated pulmonary artery which can be seen with pulmonary arterial hypertension, measuring 34 millimeters. 3. Diffuse pulmonary edema. 4. Cardiomegaly. 5. There is severe triple-vessel atherosclerotic calcifications of the coronary arteries. 6. Diffuse hepatic steatosis. 7. Partially visualized bilateral moderate hydronephrosis. Chest x-ray showed Mild tortuosity of the thoracic aorta. Heart size at the upper limits of normal. Calcified granulomas disease in both hemithoraces. No acute pulmonary parenchymal or pleural abnormality in the right hemithorax. In the left hemithorax there are reticular interstitial left lower lung opacities and blunting of the left costophrenic angle. The chronicity of these changes are not known since the previous examination was 12/20/2015. The findings were not present at that time. Mild degenerative spondylosis in the mid and lower thoracic spine. Hospital Course Hospital Course He was initially managed for congestive heart failure with IV Lasix twice a day, fluid restriction and DuoNebs. Repeat chest x-ray after 3 days showed no fluid overload/pulmonary edema. But he had a new onset leukocytosis which was worsening and while he was found to have UTI. He also had hematuria which was initially thought to be due to traumatic Suazo catheterization and history of BPH but hematuria persisted for more than 3 days and was likely secondary to UTI and renal calculus. Renal calculus was confirmed with renal ultrasound. He is DVT prophylaxis on admission and aspirin stopped which improved hematuria/resolved. He was having persistent leukocytosis and hence IV antibiotics ciprofloxacin was changed to IV ceftriaxone 1 g daily. His leukocyte count is trending down which is 12 today. He also started having acute urinary retention secondary to discontinuation of Suazo catheter. Hence Suazo reinsertion done. He was given a trial of void, was having 700 to 800 mL on bladder scan and hence decision was to continue Suazo and follow-up with urology as an outpatient. He stayed afebrile, hemodynamically stable without any urinary symptoms. He is ready to be discharged home with follow-up with urology, cardiology and PCP as outpatient. Physical Exam Narrative: He is alert awake oriented x 3 Chest clear to auscultation bilaterally Cardiovascular normal heart sounds no murmurs Abdomen soft distended nontender normal bowel sounds Extremity bilateral trace edema present. -hematuria resolved, discontinued Suazo catheter. Urinary Catheter Management: Suazo: Cath Placed During This Visit: yes, but has since been removed by the nurse Reason for Continuing Indwelling Catheter: Decision to DC Catheter Urinary Catheter Date of Insertion: 01/15/24 Date Urinary Catheter Removed: 01/19/24 Time Urinary Catheter Discontinued: 14:55 Discharge Data Studies Completed and Pending Completed Studies During Hospitalization Category Date Time Status CTA chest [CT angio chest PE protcl [id number]] Stat Cat Scan 01/15/24 15:47 Completed XR chest 1V portable [id number] Stat Exams 01/15/24 14:08 Completed XR chest 1V portable [id number] Stat Exams 01/19/24 07:25 Completed CV. echo complete* [id number] Stat Ultrasound 01/16/24 13:57 Completed US abdomen complete* [id number] Stat Ultrasound 01/15/24 19:02 Completed US renal BI* [id number] Stat Ultrasound 01/18/24 10:44 Completed Pending at discharge Category Date Time Status CA echo doppler complete Stat Exams 01/15/24 19:01 Ordered Radiology Impressions Chest CTA 01/15/24 15:47 IMPRESSION: 1. No pulmonary embolism. 2. Dilated pulmonary artery which can be seen with pulmonary arterial hypertension, measuring 34 millimeters. 3. Diffuse pulmonary edema. 4. Cardiomegaly. 5. There is severe triple-vessel atherosclerotic calcifications of the coronary arteries. 6. Diffuse hepatic steatosis. 7. Partially visualized bilateral moderate hydronephrosis. COMMENTS: Consistent with the [employer]'s Incidental Findings Committee white paper (J Am Jam Radiol 2018): Any incidental renal lesion less than 1 cm or classified as too small to characterize, or any incidental cystic renal lesion characterized as simple-appearing, is likely benign. No follow-up imaging is recommended for these lesions per consensus recommendations based on imaging criteria. Abdomen Ultrasound 01/15/24 19:02 IMPRESSION: 1. No acute findings. 2. Mild diffuse hepatic steatosis. Renal Ultrasound 01/18/24 10:44 IMPRESSION: 1. Suspected 4 mm stone in the lower pole of the left kidney. 2. Bilateral renal cysts, simple to minimally complex with some thin internal septations. No further follow-up is needed. 3. Debris-filled bladder with Suazo catheter in place. Chest X-Ray 01/19/24 07:25 IMPRESSION: No acute findings. Laboratory Results WBC 12.01 10^3/uL (3.29-11.43) H 01/22/24 05:53 RBC 4.04 10^6/uL (3.85-5.65) 01/22/24 05:53 Hgb 12.50 g/dL (11.27-16.99) 01/22/24 05:53 Hct 37.0 % (37-53) 01/22/24 05:53 MCV 91.6 fl (82-101) 01/22/24 05:53 MCH 30.9 pg (27-33) 01/22/24 05:53 MCHC 33.8 g/dL (30-55) 01/22/24 05:53 RDW 12.7 % (12.1-15.1) 01/22/24 05:53 Plt Count 293 10^3/cmm (157-399) 01/22/24 05:53 MPV 10.2 fL (7.4-10.4) 01/22/24 05:53 Neut % (Auto) 64.5 % 01/22/24 05:53 Lymph % (Auto) 16.5 % 01/22/24 05:53 [place] % (Auto) 12.6 % 01/22/24 05:53 Eos % (Auto) 5.1 % 01/22/24 05:53 Baso % (Auto) 0.7 % 01/22/24 05:53 Neut # (Auto) 7.76 10^3/uL (1.8-7.7) H 01/22/24 05:53 Lymph # (Auto) 2.0 10^3/uL (0.8-4.8) 01/22/24 05:53 [place] # (Auto) 1.5 10^3/uL (0.2-0.9) H 01/22/24 05:53 Eos # (Auto) 0.6 10^3/uL (0.0-0.8) 01/22/24 05:53 Baso # (Auto) 0.1 10^3/uL (0.0-0.1) 01/22/24 05:53 Nucleated RBC % (auto) 0 % 01/22/24 05:53 Nucleated RBCs # 0.0 /100WBC 01/22/24 05:53 D-Dimer 0.84 ug/mLFEU (0-0.59) H 01/15/24 14:15 Sodium 138 mmol/L (136-145) 01/21/24 04:20 Potassium 3.6 mmol/L (3.5-5.1) 01/21/24 04:20 Chloride 102 mmol/L (98-107) 01/21/24 04:20 Carbon Dioxide 28 mmol/L (22-29) 01/21/24 04:20 Anion Gap 11.6 (5-19) 01/21/24 04:20 BUN 13 mg/dL (8-23) 01/21/24 04:20 Creatinine 0.8 mg/dL (0.7-1.2) 01/21/24 04:20 GFR Calculation Not Reportable 01/21/24 04:20 Glucose 109 mg/dL (65-115) 01/21/24 04:20 Calculated Osmolality 287 mOsm/kg (285-295) 01/21/24 04:20 Calcium 8.1 mg/dL (8.5-10.5) L 01/21/24 04:20 Phosphorus 3.6 mg/dL (2.5-4.5) 01/18/24 05:40 Total Bilirubin 0.5 mg/dL (0.15-1.2) 01/18/24 05:40 AST 23 U/L (0-40) 01/18/24 05:40 ALT 41 U/L (0-41) 01/18/24 05:40 Alkaline Phosphatase 29 U/L (40-130) L 01/18/24 05:40 Troponin T Baseline 20 ng/L (0-15) H 01/15/24 14:15 Troponin T 120 Minute 19.57 ng/L (0-15) H 01/15/24 16:15 Delta Troponin T -0.43 ABS# (0-10) L 01/15/24 16:15 Troponin T Hi Sens 6Hr 20.60 ng/L (0-15) H 01/15/24 20:10 Troponin T Hi Sens 6Hr Delta 0.60 ng/L (0-12) 01/15/24 20:10 NT-Pro-B Natriuret Pep 918 pg/mL (0-450) H 01/16/24 04:58 Total Protein 7.2 g/dL (6.6-8.7) 01/18/24 05:40 Albumin 3.8 g/dL (3.5-5.2) 01/18/24 05:40 Globulin 3.4 g/dL (1.3-4.6) 01/18/24 05:40 Triglycerides 154 mg/dL (0-150) H 01/16/24 04:58 Cholesterol 126 mg/dL (0-200) 01/16/24 04:58 LDL Cholesterol, Calc 61 mg/dL (50-129) 01/16/24 04:58 HDL Cholesterol 34 mg/dL (60-100) L 01/16/24 04:58 LDL/HDL Ratio 1.79 RATIO (0.00-3.22) 01/16/24 04:58 Cholesterol/HDL Ratio 3.71 mg/dL (1.0-5.00) 01/16/24 04:58 Urine Color Red (Yellow) A 01/17/24 20:12 Urine Appearance Cloudy (CLEAR) A 01/17/24 20:12 Urine pH 6 (5-7) 01/17/24 20:12 Ur Specific [place] 1.015 (1.005-1.030) 01/17/24 20:12 Urine Protein 3+ (Negative) H 01/17/24 20:12 Urine Glucose (UA) Trace (Normal) H 01/17/24 20:12 Urine Ketones 1+ (Negative) H 01/17/24 20:12 Urine Blood 3+ (Negative) H 01/17/24 20:12 Urine Nitrate Positive (Negative) H 01/17/24 20:12 Urine Bilirubin Neg (Negative) 01/17/24 20:12 Urine Urobilinogen Neg mg/dL (Negative) 01/17/24 20:12 Ur Leukocyte Esterase Trace (Negative) H 01/17/24 20:12 Urine RBC Too numerous to cnt /hpf (0-2) H 01/17/24 20:12 Urine WBC 5-10 /hpf (0-5) H 01/17/24 20:12 Ur Squamous Epith Cells 0-4 /hpf (0-5) H 01/17/24 20:12 Amorphous Sediment Not Reportable 01/17/24 20:12 Urine Bacteria 1+ /hpf (NONE) H 01/17/24 20:12 Urine Mucus Trace /hpf 01/17/24 20:12 Vitals Last Vital Signs Temp 98.2 F 01/22/24 07:18 Pulse 65 01/22/24 09:06 Resp 16 01/22/24 09:06 BP 157/72 01/22/24 07:18 Pulse Ox 95 01/22/24 09:06 O2 Del Method Nasal Cannula 01/22/24 09:06 O2 Flow Rate 2 01/22/24 09:06 Discharge Plan Discharge Patient Disposition: Home Condition: Stable Prescriptions: New levofloxacin 750 mg tablet 750 mg PO DAILY 7 Days Qty: 7 0RF Continued nitroglycerin 2.5 mg Capsule, Extended Release 5 mg PO BID Rx Instructions: allow nitrate-free interval of approx. 10-12 hrs per 24-hour period aspirin 81 mg Tablet,Delayed Release (Dr/Ec) 40.5 mg PO BID simvastatin 40 mg Tablet 40 mg PO QPM tamsulosin 0.4 mg Capsule 0.8 mg PO QPM lisinopril 10 mg Tablet 10 mg PO QAM hydrochlorothiazide 25 mg Tablet 12.5 mg PO DAILY metoprolol tartrate 25 mg Tablet 25 mg PO QAM Centrum Silver Men [phone] mcg Tablet 1 tab PO QAM Discharge Orders: Discharge Order (Routine); Ordered 01/22/24 Ordered By: Nithya Castanon Other Ambulatory Orders: DME: Oxygen (Order) Location: None Selected Ordered By: Nithya Castanon DME: Walker (Order) Location: None Selected Ordered By: Nithya Castanon Referrals: Rafiq Petit [Primary Care Provider] - 02/10/24 11:30 am Discharge Diet: Cardiac Discharge Activity: Increase activity as tolerated Patient Instructions: Opioid Safety Activity Restrictions/Additional Instructions: SENT REFERRAL TO [facility] FOR APPOINTMENT [phone] [address]ESS [address] [facility] Discharge Attestations Time Spent in Discharge Care*: less than 30 min Quality Metrics Clinical Quality Measures [ No reported AMI, CVA or VTE this stay] Coding Level of Care Code Acute Code for Chg Fwd Diagnoses Congestive heart failure I50.9 Hypoxia R09.02 UTI (urinary tract infection) N39.0 Hematuria R31.9 Time Spent (min) 20
--- NOTE | 2024-01-22 11:52 | PC.NURSE ---
Nursing educated patient on leg bag teaching including how to apply the appliance and empty it as well as applying the night bag. Patient verbalized understanding. Supplies sent home include clean leg bag kit, pedroza cap, and clean and new night bag.
--- NOTE | 2024-01-22 11:54 | PC.NURSE ---
Discharge Note Patient discharged to home via private vehicle accompanied by family friend. Meds to beds was delivered from our pharmacy. Discharge instructions reviewed with patient and/or graphic art sales representative. Mobile pharmacy medications and/or prescriptions provided. Belongings/home medications returned.
== END 2024-01-22 13:00 | disposition home or self-care (01) | DRG 291 ==
LOC: ER 19:33 → MEDSURG 20:26
PROVIDERS: Internal Medicine; Admitting Provider Internal Medicine; Emergency Provider Emergency Medicine; PCP Family Medicine; Visit Provider Internal Medicine
DX: I11.0 Hypertensive heart disease with heart failure (principal); I50.31 Acute diastolic (congestive) heart failure; N13.30 Unspecified hydronephrosis; N17.9 Acute kidney failure, unspecified; N39.0 Urinary tract infection, site not specified; E78.5 Hyperlipidemia, unspecified; I25.10 Atherosclerotic heart disease of native coronary artery without angina pectoris; N40.1 Benign prostatic hyperplasia with lower urinary tract symptoms; R33.8 Other retention of urine; R09.02 Hypoxemia; R31.9 Hematuria, unspecified; Z79.82 Long term (current) use of aspirin; Z95.5 Presence of coronary angioplasty implant and graft
CPT/HCPCS: 36415; 51702; 51798; 71045; 71275; 76700; 76770; 80048; 80053; 80061; 81001; 83880; 84100; 84132; 84484; 85025; 85378; 87086; 93005; 93306; 94664; 94760; 96372; 96374; 96375; 99285; J0696; J0744; J1650; J1940; J3490; J7120; Q9967

== ENCOUNTER 2024-01-22 16:44 | Emergency (ER) | payer OTHER, MEDICARE, SELFPAY ==
[2024-01-22 16:52] VITALS: BP 114/55; PULSE 98; RESP 14; TEMP 36.6; O2SAT 95; BMI 27.2
--- NOTE | 2024-01-22 17:14 | W.ED.MALEGU ---
HPI - Male Genitourinary General: Chief complaint: Urogenital-Male Stated complaint: cath. issues Time Seen by Provider: 01/22/24 17:08 History of Present Illness: 73-year-old man with a history of hypertension, hyperlipidemia and congestive heart failure who presents to the hospital with Suazo catheter malfunction. He had been admitted for heart failure and ended up having some urinary retention and so was sent home with a Suazo catheter. He had had some issues with it clogging while he was in the hospital. Hepflush-10. He says he has not had any drainage for 2 hours and has some feelings of pelvic discomfort. No fevers. No altered mental status. No nausea or vomiting. He is currently on Levaquin at home. Review of Systems Narrative: Constitutional symptoms: Negative except as documented in HPI. Skin symptoms: Negative except as documented in HPI. Eye symptoms: Negative except as documented in HPI. ENMT symptoms: Negative except as documented in HPI. Respiratory symptoms: Negative except as documented in HPI. Cardiovascular symptoms: Negative except as documented in HPI. Gastrointestinal symptoms: Negative except as documented in HPI. Genitourinary symptoms: Negative except as documented in HPI. Musculoskeletal symptoms: Negative except as documented in HPI. Neurologic symptoms: Negative except as documented in HPI. Psychiatric symptoms: Negative except as documented in HPI. Endocrine symptoms: Negative except as documented in HPI. Physical Exam Narrative: EXAM NARRATIVE: General: Alert, no acute distress. Skin: warm and dry Head: Normocephalic Neck: Trachea midline Eye: Extraocular movements are intact. Ears, nose, mouth and throat: Oral mucosa moist Respiratory: Respirations are non-labored Musculoskeletal: Normal ROM Neurological: Alert and oriented, No focal neurological deficit observed. Psychiatric: Cooperative, appropriate mood & affect. Course Vital Signs: Vital signs: Vital Signs Temperature 97.9 F 01/22/24 16:52 Pulse Rate 98 01/22/24 16:52 Respiratory Rate 14 01/22/24 16:52 Blood Pressure 114/55 01/22/24 16:52 Pulse Oximetry 95 01/22/24 16:52 Oxygen Delivery Me thod Nasal Cannula 01/22/24 16:52 Oxygen Flow Rate 1.5 01/22/24 16:52 MDM - Male Medical Decision Making Assessment and plan: Suazo catheter malfunction -Flushed by nursing now draining. - Discharged home - Discussed plan with patient. Answered any questions. - Evaluation and treatment of this problem were appropriate in the emergency setting. No radiology studies performed this visit Discharge Plan Discharge Patient Disposition: Home Clinical Impression: Suazo catheter problem Qualifiers: Encounter type: initial encounter Qualified Code(s): T83.9XXA - Unspecified complication of genitourinary prosthetic device, implant and graft, initial encounter Condition: Stable Prescriptions: No Action nitroglycerin 2.5 mg Capsule, Extended Release 5 mg PO BID Rx Instructions: allow nitrate-free interval of approx. 10-12 hrs per 24-hour period aspirin 81 mg Tablet,Delayed Release (Dr/Ec) 40.5 mg PO BID simvastatin 40 mg Tablet 40 mg PO QPM tamsulosin 0.4 mg Capsule 0.8 mg PO QPM lisinopril 10 mg Tablet 10 mg PO QAM hydrochlorothiazide 25 mg Tablet 12.5 mg PO DAILY metoprolol tartrate 25 mg Tablet 25 mg PO QAM Centrum Silver Men [phone] mcg Tablet 1 tab PO QAM levofloxacin 750 mg tablet 750 mg PO DAILY 7 Days Qty: 7 0RF Discharge Orders: Discharge ED (Routine); Ordered 01/22/24 Ordered By: Priti Gonzales Referrals: Rafiq Petit [Primary Care Provider] - Discharge Diet: Usual diet Discharge Activity: Increase activity as tolerated Patient Instructions: Suazo Catheter Placement and Care (ED) Activity Restrictions/Additional Instructions: Please follow-up with urology as previously instructed Thank you for choosing [facility] for your healthcare needs today. Please realize this is an emergency room and that we are providing you with a medical screening exam and this may not be complete and all inclusive of all the testing and or work up that you may need to determine your ailment or severity of your illness. You have been screened and evaluated and felt safe for discharge. Health conditions do change or evolve sometimes and as such it is important that you follow up with your Primary Doctor to be re checked, 3-5 days is a general good time frame for follow up. You are always welcome to return to the ED for re assessment if your symptoms are worsening or you have new concerns Coding Level of Care Code ED Director Of Real Estate for Cher Epstein
--- NOTE | 2024-01-22 18:33 | PC.NURSE ---
pedroza catheter flushed x3 times with urine output. pt educated and showed how to flush pedroza catheter. pt voiced understanding.
== END 2024-01-22 19:03 | disposition home or self-care (01) ==
PROVIDERS: Emergency Provider Emergency Medicine; PCP Family Medicine
DX: Z79.82 Long term (current) use of aspirin (principal)
CPT/HCPCS: 99282

== ENCOUNTER 2024-01-25 02:03 | Emergency (ER) | payer OTHER, MEDICARE, SELFPAY ==
[2024-01-25 02:09] VITALS: BP 149/74; PULSE 86; RESP 16; TEMP 36.7; O2SAT 93; BMI 25.8
--- NOTE | 2024-01-25 02:33 | PC.NURSE ---
Pt. states that the catheter was placed a week ago during admission to the hospital . New catheter placed and drainage successful.
[2024-01-25 02:47] LABS: Add Urine Microscopic? YES; Bacteria Urine 1+ /hpf; Bilirubin Urine Neg (Negative); Blood Urine 3+ (Negative); Glucose Urine UA Norm (Normal); Ketones Urine Negative (Negative); Leukocyte Esterase Urine 1+ (Negative); Mucus Urine TRACE /hpf; Nitrate Urine Negative (Negative); Protein Urine 3+ (Negative); RBC Urine 25-40 /hpf (0-2); Specific Gravity, Urine 1.015 (1.005-1.030); Squamous Epithelial Cell Urine 0-4 /hpf (0-5); Urine Appearance Cloudy (CLEAR); Urine Color Yellow (Yellow); Urobilinogen Urine Neg (Negative); pH Urine 6 (5-7)
[2024-01-25 02:48] LABS: Add Urine Culture? Yes; Hyaline Casts Urine 0-4 /lpf
--- NOTE | 2024-01-25 03:03 | ED_ITS ---
HPI - Male Genitourinary General: Chief complaint: Urogenital-Male Stated complaint: Cathater issues Time Seen by Provider: 01/25/24 02:24 History of Present Illness: 73-year-old gentleman who had a Suazo ca theter placed during his last hospitalization. Evidently this was because of heart failure and fluid management. The catheter was pulled during his hospitalization for discharge, but he was unable to urinate following this. Catheter was replaced. It has since clogged once, and the patient came in with urinary retention. It was flushed in the ER with good result, and the patient was shown how to flush his catheter at that point. The patient notes little to no urine output since 9 PM last night. He was beginning to feel full in the pelvis, so he attempted catheter flushing without success at home. He is not having significant pain. No fever. No vomiting. Associated symptoms: Deny nausea or vomiting Review of Systems Const: Denies: fever(s), chills or body aches Eyes: Denies: change in vision Card: Denies: chest pain or palpitations Resp: Denies: dyspnea, productive cough, non-productive cough or wheezing GI: Denies: abdominal pain, nausea, vomiting, diarrhea or hematochezia Skin/Breast: Denies: rash Neuro: Denies: headache(s), weakness in extremities, dizziness or confusion Physical Exam Const: COMMON NORMALS: no acute distress GENERAL APPEARANCE: cooperative; not ill appearing and not frail appearing HENMT: COMMON NORMALS: normocephalic, atraumatic and Normal external nose present HEAD & SCALP: normocephalic and atraumatic FACE & SINUS: normal facial exam and face symmetric NOSE: Normal external nose present Eye: COMMON NORMALS: Equal, round and reactive pupils present and EOMs intact bilaterally PUPIL: Yes Equal, round and reactive pupils present Neck/C-Spine: GENERAL: Yes trachea midline Chest: CHEST: Yes Symmetrical chest wall rise Resp: COMMON NORMALS: normal respiratory effort, No retractions, No use of accessory muscles and clear to auscultation bilaterally AUSCULTATION: clear to auscultation bilaterally Cardio: COMMON NORMALS: regular rate and regular rhythm RATE: regular rate RHYTHM: regular rhythm GI: COMMON NORMALS: Normal to inspection, nondistended, normoactive bowel sounds present : OTHER: Pelvic fullness, minimal tenderness. Extremity: COMMON NORMALS: no pedal edema Neuro: [place] COMA SCALE: document GCS findings [place] coma scale eye opening: Spontaneous [place] coma scale verbal response: Orientated [place] coma scale motor response: [place]bey commands [place] coma scale total score: 15 SENSORY EXAM: Yes extremities (intact) Psych: COMMON NORMALS: speech normal SPEECH: Yes normal speech Skin: COMMON NORMALS: no rashes or lesions noted GENERAL SKIN EXAM: no rashes or lesions noted Course Vital Signs: Vital signs: Vital Signs Temperature 98.1 F 01/25/24 02:09 Pulse Rate 86 01/25/24 02:09 Respiratory Rate 16 01/25/24 02:09 Blood Pressure 149/74 01/25/24 02:09 Pulse Oximetry 93 01/25/24 02:09 Oxygen Delivery Me thod Nasal Cannula 01/25/24 02:09 Oxygen Flow Rate 2 01/25/24 02:09 MDM - Male Medical Decision Making Catheter is a week plus old, and was pulled and replaced by my nursing staff. Immediately return of urine following catheter replacement. He immediately put out 4 to 500 cc of clear urine. Urinalysis shows only 5-10 whites, with 25-40 reds consistent with catheterization. He is on Levaquin currently. He is ad vised to stay on Levaquin. He feels improved following catheter replacement. He will be allowed home. Outpatient follow-up with urology. He notes that he has not been contacted about an appointment since his discharge from the hospital. Will ask case management to follow-up on this on Saturday. Lab Data Laboratory Results Urine Color Yellow (Yellow) 01/25/24 02:30 Urine Appearance Cloudy (CLEAR) A 01/25/24 02:30 Urine pH 6 (5-7) 01/25/24 02:30 Ur Specific [place] 1.015 (1.005-1.030) 01/25/24 02:30 Urine Protein 3+ (Negative) H 01/25/24 02:30 Urine Glucose (UA) Norm (Normal) 01/25/24 02:30 Urine Ketones Negative (Negative) 01/25/24 02:30 Urine Blood 3+ (Negative) H 01/25/24 02:30 Urine Nitrate Negative (Negative) 01/25/24 02:30 Urine Bilirubin Neg (Negative) 01/25/24 02:30 Urine Urobilinogen Neg mg/dL (Negative) 01/25/24 02:30 Ur Leukocyte Esterase 1+ (Negative) H 01/25/24 02:30 Urine RBC 25-40 /hpf (0-2) H 01/25/24 02:30 Urine WBC 5-10 /hpf (0-5) H 01/25/24 02:30 Ur Squamous Epith Cells 0-4 /hpf (0-5) H 01/25/24 02:30 Amorphous Sediment Not Reportable 01/25/24 02:30 Urine Bacteria 1+ /hpf (NONE) H 01/25/24 02:30 Hyaline Casts 0-4 /lpf H 01/25/24 02:30 Urine Mucus Trace /hpf 01/25/24 02:30 No radiology studies performed this visit Discharge Plan Discharge Patient Disposition: Home Clinical Impression: Acute retention of urine, Suazo catheter problem Condition: Stable Prescriptions: No Action nitroglycerin 2.5 mg Capsule, Extended Release 5 mg PO BID Rx Instructions: allow nitrate-free interval of approx. 10-12 hrs per 24-hour period aspirin 81 mg Tablet,Delayed Release (Dr/Ec) 40.5 mg PO BID simvastatin 40 mg Tablet 40 mg PO QPM tamsulosin 0.4 mg Capsule 0.8 mg PO QPM lisinopril 10 mg Tablet 10 mg PO QAM hydrochlorothiazide 25 mg Tablet 12.5 mg PO DAILY metoprolol tartrate 25 mg Tablet 25 mg PO QAM Centrum Silver Men [phone] mcg Tablet 1 tab PO QAM levofloxacin 750 mg tablet 750 mg PO DAILY 7 Days Qty: 7 0RF Discharge Orders: Discharge ED (Routine); Ordered 01/25/24 Ordered By: Liang Perez Referrals: Rosalina Ann MD [Primary Care Provider] - 4-7 days Patient Instructions: Urinary Retention in Men (ED), Suazo Catheter Placement and Care (ED), Opioid Safety, Pain Management Activity Restrictions/Additional Instructions: Call your doctor Saturday. They may be able to expedite urology referral if you have not heard from urology by that point. Continue your antibiotic. Return for fever, pelvic pain, mental status changes, slow or no output into the catheter, any other concerning symptoms. Coding Level of Care Code ED Collar Stay Fuser Tender for Cher Epstein
== END 2024-01-25 03:03 | disposition home or self-care (01) ==
PROVIDERS: Emergency Provider Emergency Medicine; PCP Family Medicine
DX: R33.9 Retention of urine, unspecified (principal); T83.9XXA Unspecified complication of genitourinary prosthetic device, implant and graft, initial encounter; Z79.82 Long term (current) use of aspirin
CPT/HCPCS: 51702; 81001; 87086; 99283

== ENCOUNTER 2024-02-05 00:15 | Emergency (ER) | payer OTHER, MEDICARE, SELFPAY ==
[2024-02-05 00:29] VITALS: BP 168/73; PULSE 88; RESP 18; TEMP 36.6; O2SAT 91; BMI 25.8
--- NOTE | 2024-02-05 00:51 | ED_ITS ---
HPI - Male Genitourinary General: Chief complaint: Urogenital-Male Stated complaint: Bladder issue Time Seen by Provider: 02/05/24 00:25 History of Present Illness: Patient arrives to the ER with complaints of urinary retention. [facility] catheter until yesterday [facility] Patient said he was able to pee a little bit yesterday up until about 4 PM and since then has not been able to pee much anything at all other than a few drops. Patient started having pressure in bladder pain since then. Patient has appointment with urologist but not until April. Patient has known BPH. Review of Systems General: Reports: 10 or more systems reviewed and unremarkable except in HPI and below Physical Exam Neck/C-Spine: COMMON NORMALS: no JVD Chest: COMMONS NORMALS: normal inspection of the chest and normal palpation of entire chest wall Resp: COMMON NORMALS: normal respiratory effort, No retractions, No use of accessory muscles and clear to auscultation bilaterally AUSCULTATION: clear to auscultation bilaterally Cardio: COMMON NORMALS: no JVD, regular rate, regular rhythm, S1 normal heart sound present, S2 normal heart sound present, No gallops present (Cardio), No clicks present (Cardio), No murmurs present (Cardio) and No rub (Cardio) RATE: regular rate RHYTHM: regular rhythm HEART SOUNDS: S1 normal heart sound present and S2 normal heart sound present GI: COMMON NORMALS: Normal to inspection, nondistended, normoactive bowel sounds present, Soft to palpation, No hepatosplenomegaly present and no masses PALPATION: Yes Soft to palpation and Yes No hepatosplenomegaly present Course Vital Signs: Vital signs: Vital Signs Temperature 97.9 F 02/05/24 00:29 Pulse Rate 88 02/05/24 00:29 Respiratory Rate 18 02/05/24 00:29 Blood Pressure 168/73 02/05/24 00:29 Pulse Oximetry 91 02/05/24 00:29 Oxygen Delivery Me thod Room Air 02/05/24 00:29 MDM - Male Medical Decision Making Another Suazo will be placed. Patient is instructed to follow back up with his [place] doctor or wait for the urology appointment. Differential Diagnosis Likely acute retention of urine Medical Records I reviewed the patient's medical records. Lab Data I reviewed the patient's lab results. Laboratory Results Urine Color Yellow (Yellow) 02/05/24 00:24 Urine Appearance Clear (CLEAR) 02/05/24 00:24 Urine pH 6 (5-7) 02/05/24 00:24 Ur Specific [place] 1.005 (1.005-1.030) 02/05/24 00:24 Urine Protein Neg (Negative) 02/05/24 00:24 Urine Glucose (UA) Norm (Normal) 02/05/24 00:24 Urine Ketones Negative (Negative) 02/05/24 00:24 Urine Blood 3+ (Negative) H 02/05/24 00:24 Urine Nitrate Negative (Negative) 02/05/24 00:24 Urine Bilirubin Neg (Negative) 02/05/24 00:24 Urine Urobilinogen Neg mg/dL (Negative) 02/05/24 00:24 Ur Leukocyte Esterase Negative (Negative) 02/05/24 00:24 Urine RBC 10-15 /hpf (0-2) H 02/05/24 00:24 Urine WBC None /hpf (0-5) 02/05/24 00:24 Ur Squamous Epith Cells None /hpf (0-5) 02/05/24 00:24 Amorphous Sediment Not Reportable 02/05/24 00:24 Urine Bacteria None /hpf (NONE) 02/05/24 00:24 No radiology studies performed this visit Discharge Plan Discharge Patient Disposition: Home Clinical Impression: Acute retention of urine Condition: Stable Prescriptions: No Action nitroglycerin 2.5 mg Capsule, Extended Release 5 mg PO BID Rx Instructions: allow nitrate-free interval of approx. 10-12 hrs per 24-hour period aspirin 81 mg Tablet,Delayed Release (Dr/Ec) 40.5 mg PO BID simvastatin 40 mg Tablet 40 mg PO QPM tamsulosin 0.4 mg Capsule 0.8 mg PO QPM lisinopril 10 mg Tablet 10 mg PO QAM hydrochlorothiazide 25 mg Tablet 12.5 mg PO DAILY metoprolol tartrate 25 mg Tablet 25 mg PO QAM Centrum Silver Men [phone] mcg Tablet 1 tab PO QAM Discharge Orders: Discharge ED (Routine); Ordered 02/05/24 Ordered By: Chan Angulo Referrals: Rosalina Ann MD [Primary Care Provider] - 1 week Patient Instructions: Urinary Retention in Men (ED), Suazo Catheter Care Activity Restrictions/Additional Instructions: Please follow-up with your Physician within the next 7 to 10 days for further evaluation and treatment. Coding Level of Care Code ED D[employer] Bra[employer] Machine Operator for Cher Epstein
[2024-02-05 01:34] LABS: Add Urine Microscopic? YES; Bilirubin Urine Neg (Negative); Blood Urine 3+ (Negative); Glucose Urine UA Norm (Normal); Ketones Urine Negative (Negative); Leukocyte Esterase Urine Negative (Negative); Nitrate Urine Negative (Negative); Protein Urine Neg (Negative); Specific Gravity, Urine 1.005 (1.005-1.030); Urine Appearance Clear (CLEAR); Urine Color Yellow (Yellow); Urobilinogen Urine Neg (Negative); pH Urine 6 (5-7)
[2024-02-05 01:35] LABS: Add Urine Culture? Yes
[2024-02-05 01:58] VITALS: BP 134/86; PULSE 73; O2SAT 93
== END 2024-02-05 02:01 | disposition home or self-care (01) ==
PROVIDERS: Emergency Provider Emergency Medicine; PCP Family Medicine
DX: R33.9 Retention of urine, unspecified (principal); Z79.82 Long term (current) use of aspirin
CPT/HCPCS: 51702; 81001; 87086; 99283